=== PATIENT | male | born 1960 | race Caucasian/White ===

== ENCOUNTER → 2018-04-01 10:26 | Outpatient (REF) | payer OTHER, SELFPAY ==
[2018-04-02 18:08] LABS: PSA, Screening 0.4 ng/ml (0-3.5)
== END ==
LOC: NCHCN 10:26
PROVIDERS: PCP Internal Medicine; Visit Provider Internal Medicine
DX: R31.0 Gross hematuria (principal); Z12.5 Encounter for screening for malignant neoplasm of prostate
CPT/HCPCS: 84153

== ENCOUNTER → 2018-04-22 08:51 | Outpatient (BNVA) | payer OTHER, SELFPAY | PROVIDERS: PCP Internal Medicine; Visit Provider Nurse Practitioner Gerontology | DX: R31.9 Hematuria, unspecified (principal) | CPT/HCPCS: 99204 ==

== ENCOUNTER 2018-04-22 11:54 | Outpatient (REF) | payer OTHER, SELFPAY ==
--- NOTE | 2018-04-22 09:30 | PAPNONF_PTH ---
PATIENT: Hardy Lyn LOC: [facility] U#:[id number] AGE/SX: 57/M ROOM: RE04/22/[address]: Suad Landeros DNP : 1960 BED: DIS: 04/22/2018 SPEC #: [id number] RECD: 04/22/18 13:03 STATUS: ARLINE REIhsan #: [id number] PUNEET: 04/22/18 09:[address]: Suad Landeros DEPT: [facility] Cytology RECD BY: Che Pak ENTERED: 04/22/18 13:04 SP TYPE: ARMIN RIZO DR: Wilian Patel Tissues: 1 - BODY FLUID CYTO(SPUTUM/URINE)[facility] Procedures: BODY FLUID CYTO(URINE/SPUTUM) Comments: [id number]
== END 2018-04-22 12:14 ==
LOC: LBN 11:54
PROVIDERS: PCP Internal Medicine; Visit Provider Nurse Practitioner Gerontology
DX: R31.9 Hematuria, unspecified (principal); R82.8 Abnormal findings on cytological and histological examination of urine
CPT/HCPCS: 88104

== ENCOUNTER 2018-04-25 00:15 | Outpatient (CLI) | payer OTHER, SELFPAY ==
[2018-04-25 13:51] LABS: CREATININE 0.91 mg/dL (0.70-1.30)
--- NOTE | 2018-04-25 14:21 | DI.CT_ITS ---
SYMPTOMS/DIAGNOSIS: INTERMITTENT HEMATURIA, R31.0 CT OF THE ABDOMEN AND PELVIS: Images were performed before and after IV contrast with an addition of a 7- minute delay. The noncontrast images show two tiny nonobstructing stones in the mid and lower left kidney. A single tiny nonobstructing stone is seen in the mid right kidney. There is no evidence of ureteral calculi. The nephrograms and pyelograms are symmetric. There is a simple cyst in the anterior left kidney. No collecting system filling defects are seen. The bladder is mildly enlarged and slightly impresses on the base of the bladder. The heart size is normal. The lung bases are clear. The liver, gallbladder, spleen, pancreas and adrenals are unremarkable. There is no bowel dilatation or inflammatory change. The appendix appears normal. There are small fatty- containing bilateral inguinal hernias. IMPRESSION: Tiny bilateral nonobstructing renal calculi. Simple left renal cyst.
[2018-04-25] MEDS: Omnipaque 350 MG/ML 100 ML BTL IJ (14:27)
== END 2018-04-25 00:35 ==
PROVIDERS: PCP Internal Medicine; Visit Provider Nurse Practitioner Gerontology
DX: R31.0 Gross hematuria (principal); N20.0 Calculus of kidney; N28.1 Cyst of kidney, acquired
CPT/HCPCS: 36415; 74178; 82565; J3490

== ENCOUNTER 2018-04-27 00:38 | Outpatient (CLI) | payer OTHER, SELFPAY ==
[2018-04-27 09:25] LABS: CREATININE 1.03 mg/dL (0.70-1.30)
== END 2018-04-27 00:58 ==
PROVIDERS: PCP Internal Medicine; Visit Provider Nurse Practitioner Gerontology
DX: R31.9 Hematuria, unspecified (principal)
CPT/HCPCS: 36415; 82565

== ENCOUNTER → 2018-05-05 14:15 | Outpatient (BNVA) | payer OTHER, SELFPAY | PROVIDERS: PCP Internal Medicine; Visit Provider Nurse Practitioner Gerontology | DX: R31.0 Gross hematuria (principal); I10 Essential (primary) hypertension; E11.9 Type 2 diabetes mellitus without complications; Z79.84 Long term (current) use of oral hypoglycemic drugs | CPT/HCPCS: 99213 ==

== ENCOUNTER 2019-05-18 16:58 | Emergency (ER) | payer OTHER, SELFPAY ==
[2019-05-18 17:04] VITALS: BP 189/79; PULSE 78; RESP 18; TEMP 36.6; O2SAT 100
[2019-05-18 17:05] VITALS: RESP 16
--- NOTE | 2019-05-18 17:15 | DI.RAD_ITS ---
EXAM: XR CHEST 2V PA LATERAL INDICATION: shortness of breath. COMPARISON: No exams were available for comparison TECHNIQUE: 2D digital imaging was performed. FINDINGS: The heart is not enlarged. The lungs are clear. No pleural effusion seen. IMPRESSION: Impression no evidence of acute process
--- NOTE | 2019-05-18 17:15 | W.ED.GENAD ---
Discharge Plan Disposition Patient Disposition: HOME Condition: Stable Discharge Details Chief Complaint: SOB Clinical Impression: Shortness of breath Primary Care Provider: Wilian Patel ED Provider: Vick Raza Home Meds and New Rx's Prescriptions: Continued naproxen 500 mg tablet 250 mg PO BID PRNRF: 0 Jardiance 10 mg tablet 10 mg PO DAILY RF: 0 atorvastatin [Lipitor] 40 MG tablet 40 mg PO DAILY RF: 0 metformin 500 MG tablet 1,000 mg PO BID RF: 0 losartan 100 MG tablet 100 mg PO DAILY RF: 0 cholecalciferol (vitamin D3) [Vitamin D3] 400 UNIT capsule 1,000 units PO DAILY RF: 0 metoprolol tartrate 25 MG tablet 25 mg PO BID RF: 0 omeprazole 20 MG tablet,delayed release (DR/EC) 20 mg PO DAILY RF: 0 gabapentin 300 MG capsule 300 mg PO HS PRN PRNRF: 0 Discharge Instructions Instructions: Dyspnea (ED) Additional Instructions: Your xray and lab work did not show any significant findings to explain your symptoms follow up with your primary care provider within 1 week if you feel you are becoming more ill, have worsening shortness of breath or pain return to the emergency department for reevaluation Medical Decision Making 58 yo male with hx of DM, HTn, HLD, who comes in with chief comlpaint of shortness of breath for a week.He states he has had some aching n the anterior chest as well for several days that feels as though he lifted too puch weight. He has no fevers, cough, pressure, radiation of pain or incrased symptoms with exertion. He is speaking in full sentences in no distress. He has clear lung sounds, small pericardial effusion on bedside u/s with no evidence of tamponade clinically or on bedside u/s, no b lines in the lungs. Will obtain cbc to eval for anemia and send troponin and obtian xray. no tearing back pain so doubt dissection. Wells score is low so will send d dimer to eval for PE pt remains stable, still no tachycardia and normal oxygen saturation. Labs unremarkable other than anion gap of 16 with no other concerning findings. Will hydrate and recheck metabolic panel and also add lactate. no fevers or infectious symptoms so doubt sepsis and normal glucose so doubt dka, no abdominal pain so doubt liver disease and no hypotension so doubt shock, no overdoses and no other meds than what he is prescribed so doubt tylenol, aspirin, methanol, ethylene glycol, iron, inh ingestions. Will also repeat the troponin, heart sore is 3 pt remains stable and repeat lab work shows no concerning findings. Given stable vitals and well apperaance and reassuring lab work feel he is safe for d/c. Has walking o2 saturation of 97% without tachycardia. Advised f/u with pcp within a week and return precautions given Differential Diagnosis Differential Diagnosis: pna, nstemi, pe, chf Imaging Data Radiologic Study: Attestation: I personally reviewed and interpreted this imaging study as follows: Imaging: X-Ray Radiologist's impression: no acute findings Lab Data Lab results reviewed: Yes I reviewed the patient's lab results. ECG Data Attestation: I personally reviewed and interpreted this ECG (s) as follows: Prior ECG tracings: not available for review Interpretation: sinus rhythm, rate of 81, pr 142, no acute st t wave ischemicfindings HPI General Mode of arrival: ambulatory. Date/Time Provider Initiated Documentation: 05/18/19 17:04. Limitations to Documentation: no limitations. Information obtained by: patient. History of Present Illness 58 year old M presents to the emergency department with the chief complaint of shortness of breath, described as mild, Patient started experiencing this day(s) (7) and it has been constant. No relieving factors improve symptom(s), No exacerbating factors reported . Patient did receive the following treatments prior to arrival, none Related Data Home Medications Medication Instructions Recorded Confirmed atorvastatin [Lipitor] 40 mg PO DAILY 03/19/14 05/18/19 cholecalciferol (vitamin D3) 1,000 units PO DAILY 03/19/14 05/18/19 [Vitamin D3] losartan 100 mg PO DAILY 03/19/14 05/18/19 metformin 1,000 mg PO BID 03/19/14 05/18/19 metoprolol tartrate 25 mg PO BID 03/19/14 05/18/19 omeprazole 20 mg PO DAILY 03/19/14 05/18/19 gabapentin 300 mg PO HS PRN PRN 06/11/17 05/18/19 naproxen 500 mg tablet 250 mg PO BID PRN 04/22/18 05/18/19 empagliflozin 10 mg tablet 10 mg PO DAILY 05/05/18 05/18/19 Allergies Allergy/AdvReac Type Severity Reaction Status Date / Time amlodipine Allergy Mild Verified 05/18/19 17:08 hydrochlorothiazide Allergy Mild Verified 05/18/19 17:08 lisinopril Allergy Mild Verified 05/18/19 17:08 oxycodone HCl [From Percocet] AdvReac Nausea Verified 05/18/19 17:08 pravastatin AdvReac myalgia Verified 05/18/19 17:08 General Stated Complaint: SOB RICHARD: 2 Review of Systems Review of Systems ROS Unobtainable: All systems reviewed & are unremarkable except as noted in HPI and below Constitutional Constitutional: Denies chills, Denies fever(s) and Denies weakness Respiratory Respiratory: Denies cough Gastrointestinal Gastrointestinal: Denies abdominal pain, Denies nausea and Denies vomiting Musculoskeletal Musculoskeletal: Denies joint swelling Neurologic Neurologic: Denies weakness [facility] Social History Smoking/Tobacco Use Status: Never Alcohol Intake: never Drug use: Never Substance use type: does not use Household members: family Current gender identity: male What is your relationship status?: Panel score (0-1 are the most socially isolated patients): 1 Velma/Islam: Yarsanism Special velma needs: No Seatbelt use: always Do you feel safe at home: Yes Do you feel safe in your relationship?: Yes Exam Const General: no acute distress Orientation: alert HENMT Head: normal to inspection Ears: external ears normal General nose exam: external nose normal Mouth: moist mucous membranes Eyes General: appearance normal, both eyes and all related structures Neck Neck: normal visual inspection Resp Effort & Inspection: normal respiratory effort and able to speak in complete sentences Cardio Rate: regular rate Skin General skin exam: no rashes or lesions noted Neuro General: alert and oriented x3 Extrem General: normal to inspection Psych Mental Status: mental status grossly normal Course Vital Signs Vital signs: Vital Signs Temperature 36.6 C 05/18/19 17:04 Pulse 78 05/18/19 17:04 Respiratory Rate 18 05/18/19 17:04 Blood Pressure 189/79 H 05/18/19 17:04 Pulse Oximetry 100 05/18/19 17:04 Temperature 36.6 C 05/18/19 17:04 Temperature Source Skin 05/18/19 17:04 Pulse 78 05/18/19 17:04 Respiratory Rate 18 05/18/19 17:04 Respiratory Effort Short of Breath 05/18/19 17:06 Blood Pressure 189/79 H 05/18/19 17:04 Blood Pressure Position Sitting 05/18/19 17:04 Pulse Oximetry 100 05/18/19 17:04 Oxygen Delivery Method Room Air 05/18/19 17:04 Oxygen Flow Rate 0 05/18/19 17:04
[2019-05-18 17:27] LABS: Abs Immature Grans 0.05 k/cumm (0.0-0.09); Absolute Basophil Count 0.05 k/cumm (0.0-0.2); Absolute Eosinophil Count 0.07 k/cumm (0.0-0.7); Absolute Monocyte Count 0.73 k/cumm (0.11-0.7); Absolute Neutrophil Count 3.08 k/cumm (1.2-6.7); Basophils % 0.7; HCT 44.1 % (40.0-50.0); HGB 15.6 g/dL (13.5-17.5); Immature Grans % 0.7; Lymphocytes % 40.4; Mean Corp. HGB Concentration 35.4 g/dL (32.0-36.0); Mean Corpuscular Hemoglobin 29.4 pg (27.0-33.0); Mean Corpuscular Volume 83.2 fL (80-95); Mean Platelet Volume 10.6 fL (8.0-11.0); Monocytes % 10.9; Neutrophils % 46.3; Platelet Count 194 x1000/uL (130-400); RBC Distribution Width 14.1 % (11.8-14.1); White Blood Cell Count 6.68 k/cumm (4.4-10.8)
[2019-05-18 17:43] LABS: INR 1.1 (0.9-1.1); PTT Activated 23.3 sec (21.0-31.4); Prothrombin Time 10.7 sec (9.3-11.0)
[2019-05-18 18:00] LABS: D-Dimer 260 ng/mlFEU (<500)
--- NOTE | 2019-05-18 18:16 | DI.VRAD_ITS ---
PROCEDURE INFORMATION: Exam: XR Chest, 2 Views Exam date and time: 05/18/2019 5:57 PM Clinical history: 58 years old, male; Shortness of breath TECHNIQUE: Imaging protocol: XR of the chest Views: 2 views. COMPARISON: No relevant prior studies available. FINDINGS: Lungs: Normal pulmonary expansion. Pulmonary vasculature grossly normal. No infiltrates. Pleural space: No pleural effusion. No pneumothorax. Heart/Mediastinum: Heart size normal. No tracheal/mediastinal shift. Bones/joints: No acute osseous abnormalities are identified. IMPRESSION: No acute thoracic process. Dictated and Authenticated by: Kyle Raya MD. Ordering:ROSCOE Hickman MD
--- NOTE | 2019-05-18 18:17 | NUR.NOTE ---
pt back from xray placed back on adjunct nursing faculty family at bedside resp even unlabored at rest Nursing Note:
[2019-05-18 18:21] LABS: ALT 29 U/L (16-63); AST 16 U/L (15-37); Albumin 4.6 g/dL (3.4-5.0); Alkaline Phosphatase 113 U/L (46-116); Anion Gap 16.5 mmol/L (3-11); BUN 16 mg/dL (7-18); Bilirubin, Total 0.6 mg/dL (0.2-1.0); CO2 22.5 mmol/L (21.0-32.0); CREATININE 1.12 mg/dL (0.70-1.30); Calcium 9.6 mg/dL (8.5-10.1); Chloride 104 mmol/L (98-107); Glucose 144 mg/dL (70-100); NT-proBNP 17 pg/mL; Potassium 3.2 mmol/L (3.5-5.1); Sodium 143 mmol/L (136-145); Total Protein 8.4 g/dL (6.4-8.2); Troponin I < 0.05 ng/mL (0.00-0.06)
[2019-05-18] MEDS: Normal Saline 1,000 ML 1000 ML IV ×2 (18:36→19:47)
--- NOTE | 2019-05-18 18:53 | NUR.NOTE ---
pt ambulating around er with spo2 stayed above 97% entire time md made aware Nursing Note:
[2019-05-18 19:00] VITALS: BP 148/83; PULSE 67; RESP 14; O2SAT 99
--- NOTE | 2019-05-18 19:02 | NUR.NOTE ---
Assumed care of pt. Report from CONCETTA Hardin. Pt lying in bed in NAD. NS infusing a/o. Plan for repeat labs after 2L IVF. Pt aware of plan. Reports 3/10 aching pain to right chest. SR on monitor.
[2019-05-18 20:34] LABS: BE (Venous) -2.4 mmol/L (-3-3); HCO3 (Venous) 22 mmol/L (22-28); O2 Sat (Venous) 78 % (70-80); TCO2 (Venous) 20 mmol/L (22-29); pCO2 (Venous) 36 mm/Hg (34-47); pH (Venous) 7.41 (7.32-7.43); pO2 (Venous) 43 mm/Hg (28-44)
[2019-05-18 20:36] LABS: Lactate 1.5 mmol/L (0.6-1.4)
[2019-05-18 20:53] LABS: Troponin I < 0.05 ng/mL (0.00-0.06)
[2019-05-18 21:00] LABS: Anion Gap 13.2 mmol/L (3-11); BUN 15 mg/dL (7-18); CO2 21.8 mmol/L (21.0-32.0); CREATININE 0.93 mg/dL (0.70-1.30); Calcium 8.1 mg/dL (8.5-10.1); Chloride 109 mmol/L (98-107); Glucose 117 mg/dL (70-100); Potassium 3.5 mmol/L (3.5-5.1); Sodium 144 mmol/L (136-145)
[2019-05-18 21:15] VITALS: BP 151/75; PULSE 73; RESP 16; O2SAT 96
--- NOTE | 2019-05-18 21:16 | NUR.NOTE ---
discharge instructions reviewed with verbal understanding. aware to f/u with pcp as needed. IV removed. Ambulated to exit with steady gait.
== END 2019-05-18 21:11 | disposition home or self-care (01) ==
PROVIDERS: Emergency Provider Emergency Medicine; PCP Internal Medicine
DX: R06.02 Shortness of breath (principal); I10 Essential (primary) hypertension; E11.9 Type 2 diabetes mellitus without complications; Z79.84 Long term (current) use of oral hypoglycemic drugs
CPT/HCPCS: 36415; 80048; 80053; 82805; 93005; 96360; 96361; 99284; 71046; 83605; 83880; 84484; 85025; 85379; 85610; 85730; 93010

== ENCOUNTER 2019-06-11 12:05 | Outpatient (REF) | payer OTHER, SELFPAY ==
[2019-06-11 19:14] LABS: TSH 0.74 uIU/mL (0.36-3.74); Uric Acid 3.9 mg/dL (3.5-7.2)
== END 2019-06-11 12:25 ==
LOC: NCHCN 12:05
PROVIDERS: PCP Internal Medicine; Visit Provider Internal Medicine
DX: R14.0 Abdominal distension (gaseous) (principal); R07.89 Other chest pain; R53.83 Other fatigue; E11.9 Type 2 diabetes mellitus without complications; I10 Essential (primary) hypertension; Z87.442 Personal history of urinary calculi
CPT/HCPCS: 84439; 84443; 84550

== ENCOUNTER 2019-06-17 02:44 | Outpatient (CLI) | payer OTHER, SELFPAY ==
--- NOTE | 2019-06-17 09:38 | PFT_ITS ---
JUNE 17, 2019 REQUESTING PROVIDER: Dr. Wilian Patel SPIROMETRY: Shows no evidence of obstructive airways disease. No bronchodilator response. LUNG VOLUME: Shows no evidence of restriction. DIFFUSION CAPACITY: Normal. AIRWAYS RESISTANCE: Normal. IMPRESSION: Normal pulmonary function study. Clinical correlation is recommended.
[2019-06-17] MEDS: Inhaler, Assist Device 1 EACH MC (11:29)
[2019-06-17] MEDS: Albuterol HFA 18 GM 200 PUFF INH IH (11:30)
== END 2019-06-17 03:04 ==
PROVIDERS: PCP Internal Medicine; Visit Provider Internal Medicine
DX: R06.02 Shortness of breath (principal)
CPT/HCPCS: 94060; 94150; 94726; 94729

== ENCOUNTER 2019-06-22 01:14 | Outpatient (CLI) | payer OTHER, SELFPAY ==
[2019-06-22] MEDS: Omnipaque 350 MG/ML 50 ML BTL PO (08:31)
[2019-06-22] MEDS: Breeza Beverage 473 ML BTL PO (08:33)
--- NOTE | 2019-06-22 09:22 | DI.CT_ITS ---
EXAM: CT ABDOMEN W CLINICAL HISTORY: ABD BLOATING,R14.0,FATTY LIVER DISEASE,K76.0 TECHNIQUE: Imaging Protocol: Axial computed tomography images with coronal and sagittal reformatted images were created and reviewed CONTRAST MATERIAL: Intravenous: Omnipaque 350 Contrast volume:100 cc's, Contrast route:IV Oral: Yes FINDINGS: ABDOMEN: Lung Bases: There is a calcified granuloma in the right lower lobe. The lung bases are otherwise elaine ar. Liver: The liver does appear to be of decreased density. This raises the question of hepatic steatos is. No measurable mass. The portal, superior mesenteric and splenic veins are patent. Gallbladder and biliary tract: No radiodense calculus or dilation. Pancreas: Normal density, no abnormal calcifications or inflammatory process. Spleen: Normal. Kidneys: Normal size, contour and axis. There is a 2 mm nonobstructing stone in the midpole of the ri ght kidney. There is a 2.4 cm simple cyst in the midpole of the left kidney. No masses seen. Adrenal glands: No masses seen. Abdominal Aorta: Abdominal portion non-dilated. Atherosclerosis. Lymph nodes: Within normal limits. Bowel: Unremarkable. No ascites or pneumoperitoneum. Bones: Mild degenerative disease. IMPRESSION: 1. Findings suggestive of hepatic steatosis. 2. Right nephrolithiasis. DATA REPOSITORY: All CT scans at this facility are submitted to the National Radiology Data Registry (NRDR) Dose Index Registry (DIR) with the [employer] (ACR). RADIATION OPTIMIZATION: All CT scans at this facility use at least one of these dose optimization te chniques: automated exposure control; mA and/or kV adjustment per patient size (includes targeted exa ms where dose is matched to clinical indication); or iterative reconstruction.
[2019-06-22] MEDS: Omnipaque 350 MG/ML 100 ML BTL IV (09:24)
== END 2019-06-22 01:34 ==
PROVIDERS: PCP Internal Medicine; Visit Provider Internal Medicine
DX: R14.0 Abdominal distension (gaseous) (principal); K76.0 Fatty (change of) liver, not elsewhere classified; N20.0 Calculus of kidney; N28.1 Cyst of kidney, acquired; J98.4 Other disorders of lung
CPT/HCPCS: 74160; J3490; Q9967

== ENCOUNTER 2019-07-16 00:59 | Outpatient (CLI) | payer OTHER, SELFPAY ==
--- NOTE | 2019-07-16 08:17 | ETT_ITS ---
APPROVED REPORT Exam: Exercise Treadmill Patient Location: Out-Patient Room/Bed: Stress Nurse: Josephine Carrasquillo RN BMI: 31.74 Baseline Rhythm: Sinus rhythm with flat or neg T-waves in anterior leads Indications: Atypical chest pain. SOB on exertion. Medical History Medical History: Diabetic ??? Noninsulin, HTN, Hyperlipidemia, SOB Cardiac Medications: Metoprolol tartrate/ Lopressor, Metformin, Losartan, Atorvastatin/ Lipitor Allergies: Amlodipine. Hydrochlorothiazide. Lisinopril. Oxycodone. Pravastatin. Cardiac Risk Factors: HTN, Hyperlipidemia, Diabetes (non-insulin), SOB Exercise History: Physically active Lung Sounds: Clear to auscultation Heart Sounds: Regular Stress Test Details Test: Exercise stress testing was performed using a Mario protocol. Rest Stress HR Max Heart Rate (APMHR): 161 bpm Resting HR Supine: 83 bpm Target HR (85% APMHR): 136 bpm Resting HR Standin bpm Max HR Achieved: 171 bpm % of APMHR: 106 Recovery HR: 101 bpm HR response to stress: Normal HR response to stress BP Resting BP Supine: 162/90 mmHg Resting BP Standin/84 mmHg Max BP: 220/70 mmHg Recovery BP: 162/94 mmHg BP response to stress: Exaggerated hypertensive response ECG Resting ECG: Sinus rhythm with flat or inverted T-waves in anterior leads Ectopy: PVCs with few couplets. Stress ECG: Sinus Tachycardia ST Change: T-wave flattening remained unchanged Arrhythmia: During peak exercise PVCs noted with few couplets, resolved within 1 minute recovery. Recovery ECG: Sinus Rhythm Recovery ST Change: No significant change Clinical Time of Stop for Mario: 1003 Reason for Termination: Target HR Achieved Stress Symptoms: Mild 1 out of 10 chest ache during peak exercise, subsided within 1 minute of silva very. Exercise duration: 10 min3 sec Highest Stage Achieved: Stage 4: 4.2 mph at 16% grade. Exercise capacity: 11.88 METs Functional Capacity: Above average capacity Scale: Active Stress ECG Conclusion 1. The patient exercised for 10 minutes (12 METS) 2. The patient had a hypertensive response to stress and 1 out of 10 chest aching. 3. He had baseline T wave flattening in the anterior leads which was unchanged with stress 4. There was no significant evidence of ischemia with stress on the ECG. 5. The Edgar Score (5) estimates an annual cardiovascular mortality of 1% and a five year survival of 94%. Using the Edgar Score there is a low probability of any angiographic coronary disease. Protocol Used: Mario Protocol Stress Test Summary STAGE Time (mins) Speed (mph) Grade (%) HR BP SYMPTOMS METS Supine 83 162/90 Standing 91 168/84 1 3 1.7 10 106 180/78 4.6 2 6 2.5 12 120 192/82 7 3 9 3.4 14 145 208/90 10.2 4 12 4.2 16 162 1/10 mild chest ache 12.9 5 15 5.0 18 17.2 1 min recovery 146 218/72 No further chest discomfort 3 min recovery 111 220/70 6 min recovery 100 190/80 9 min recovery 103 188/90 15 min recovery 101 162/94
== END 2019-07-16 01:19 ==
PROVIDERS: PCP Internal Medicine; Visit Provider Internal Medicine
DX: R07.89 Other chest pain (principal); R06.02 Shortness of breath; I10 Essential (primary) hypertension; E78.5 Hyperlipidemia, unspecified; E11.9 Type 2 diabetes mellitus without complications; Z79.84 Long term (current) use of oral hypoglycemic drugs
CPT/HCPCS: 93017

== ENCOUNTER 2021-05-10 02:12 | Outpatient (CLI) | payer OTHER, SELFPAY ==
--- NOTE | 2021-05-10 | DI.RAD_ITS ---
Exam(s) XR CERVICAL SPINE COMP 4-5V EXAM: XR CERVICAL SPINE COMP 4-5V CLINICAL HISTORY: NECK PAIN, M54.2. TECHNIQUE: 2D digital imaging was performed. COMPARISON: No exams were available for comparison FINDINGS: No evidence of fracture or listhesis. Mild disc space narrowing at C6-7 level noted. Other disc spa rudy exhibit normal height there is a right sys left-sided Luschka joint osteophytes at C6-7 level. S maller right-sided Luschka joint osteophyte at this level. No cervical ribs. Mild degenerative face t arthropathy changes IMPRESSION: Degenerative disc disease C6-7 level. DATA REPOSITORY: RADIATION DOSE DELIVERED:
== END 2021-05-10 02:32 ==
PROVIDERS: PCP Internal Medicine; Visit Provider Family Medicine
DX: M54.2 Cervicalgia (principal); M50.323 Other cervical disc degeneration at C6-C7 level; M25.78 Osteophyte, vertebrae
CPT/HCPCS: 72050

== ENCOUNTER 2021-09-21 14:40 | Emergency (ER) | payer OTHER, SELFPAY ==
[2021-09-21] VITALS (42 sets, daily range): BP systolic 131–185; BP diastolic 63–74; PULSE 59–93; RESP 0–29; TEMP 36.9; O2SAT 93–100
--- NOTE | 2021-09-21 14:30 | RT.EKG_ITS ---
APPROVED REPORT Exam: Resting ECG Reason for Exam: sob Patient Location: E HR:77 bpm ECG Measurements Heart Rate 77 AXIS AZ 144 P 47 QRSd 88 QRS 5 QT 393 T 34 QTc 445 Conclusion Sinus rhythm...normal P axis, V-rate 60- 99 Physician: no stemi, Q wave in lead III, unchanged from prior EKG in 05/18/19
[2021-09-21 15:09] LABS: Abs Immature Grans 0.04 10^3/uL (0.0-0.06); Absolute Basophil Count 0.03 10^3/uL (0.0-0.2); Absolute Eosinophil Count 0.05 10^3/uL (0.0-0.7); Absolute Lymphocyte Count 1.45 10^3/uL (1.2-3.4); Absolute Neutrophil Count 5.13 10^3/uL (1.2-6.7); Basophils % 0.4; Eosinophils % 0.7; HCT 43.6 % (40.0-50.0); HGB 14.6 g/dL (13.5-17.5); Immature Grans % 0.5; Lymphocytes % 19.9; MCH 28.7 pg (27.0-33.0); MCHC 33.5 % (32.0-36.0); MCV 85.8 fL (80-95); Monocytes % 8.2; Neutrophils % 70.3; Nucleated RBC 0 %; Platelet Count 182 10^3/uL (130-400); RBC 5.08 10^6/uL (4.36-5.78); RDW 13.5 % (11.8-14.1); RDW-SD 42.1 fL
[2021-09-21 15:46] LABS: D-Dimer 264 ng/mlFEU (<500)
[2021-09-21 15:49] LABS: ALT 30 U/L (16-63); AST 16 U/L (15-37); Albumin 4.4 g/dL (3.4-5.0); Alkaline Phosphatase 84 U/L (46-116); Anion Gap 12.7 mmol/L (3-11); BUN 21 mg/dL (7-18); Bilirubin, Total 0.6 mg/dL (0.2-1.0); CO2 24.3 mmol/L (21.0-32.0); Chloride 103 mmol/L (98-107); Glucose 142 mg/dL (74-106); Magnesium 1.7 mg/dL (1.8-2.4); NT-proBNP 79 pg/mL (<300); PHOSPHORUS 4.3 mg/dL (2.6-4.7); Potassium 3.6 mmol/L (3.5-5.1); Sodium 140 mmol/L (136-145); TSH (W/Ref FT4) 0.81 uIU/mL (0.36-3.74); Total Protein 7.9 g/dL (6.4-8.2); Troponin I < 50 ng/L (<or=60)
--- NOTE | 2021-09-21 16:15 | RT.EKG_ITS ---
APPROVED REPORT Exam: Resting ECG Reason for Exam: palpitations Patient Location: E HR:62 bpm ECG Measurements Heart Rate 62 AXIS UT 146 P 30 QRSd 88 QRS -8 QT 418 T 14 QTc 425 Conclusion Sinus rhythm...normal P axis, V-rate 60- 99 Inferior infarct, old...Q >35mS, II III aVF Physician: no stemi, unchanged
--- NOTE | 2021-09-21 16:34 | W.ED.GENAD ---
Discharge Plan Disposition Patient Disposition: HOME Condition: Good Discharge Details Clinical Impression: Palpitation Primary Care Provider: Wilian Patel ED Provider: Pop Paris Home Meds and New Rx's Prescriptions: Continued naproxen 500 mg tablet 250 mg PO BID PRN0RF Jardiance 10 mg tablet 10 mg PO DAILY 0RF atorvastatin [Lipitor] 40 MG tablet 40 mg PO DAILY 0RF metformin 500 MG tablet 1,000 mg PO BID 0RF losartan 100 MG tablet 100 mg PO DAILY 0RF cholecalciferol (vitamin D3) [Vitamin D3] 400 UNIT capsule 1,000 units PO DAILY 0RF metoprolol tartrate 25 MG tablet 25 mg PO BID 0RF omeprazole 20 MG tablet,delayed release (DR/EC) 20 mg PO DAILY 0RF gabapentin 300 MG capsule 300 mg PO HS PRN PRN0RF Discharge Instructions Instructions: Heart Palpitations (ED) Additional Instructions: At this time your work-up is reassuring. There is no evidence of significant electrolyte abnormality or cardiac dysrhythmia on the work-up today. We have applied the Holter monitor, and this will be able to catch any dysrhythmia if it occurs over the next 48 hours. Once you have completed the Holter monitor please follow-up closely for reassessment with your primary care provider. If you notice any worsening of your symptoms, or any new symptoms such as vomiting, diarrhea, fever, chills, shortness of breath, chest pain, numbness, weakness, or fainting , please return immediately to the emergency department for reevaluation. Please follow up with your primary care provider as soon as possible for reassessment and reevaluation. As always, it was a pleasure participating in your medical care today. Referrals: Wilian Patel MD [Primary Care Provider] - Medical Decision Making 61-year-old male with a past medical history of hypertension, high cholesterol, diabetes, presents today for evaluation of palpitations. Patient states that last night he felt a skipping sensation in his chest, lasted about 15 minutes. It went away on its own without any significant intervention. He feels that it is slightly worsened when he lies down at night. He has had this intermittently in the past but never this severe. Then today when he was walking to his various buildings at work he noticed that he was more short of breath than normal. Currently he denies any chest pain, chest tightness, arm neck or shoulder pain. He denies any numbness, tingling, or weakness. He denies any previous cardiac disease. He denies any family history of sudden cardiac or life-threatening dysrhythmias. No other complaints at this time. Physical exam is unremarkable, vital signs stable aside from mild hypertension. EKG shows no evidence of dysrhythmia, intervals normal. No signs of STEMI. Differential includes electrolyte abnormality causing PVC or dysrhythmia, the transient shortness of breath does bring about concern for potential PE. We will get a D-dimer. Will evaluate for electrolyte abnormality, cardiac abnormality, evaluate for heart strain with the proBNP, monitor closely and reassess 6:04 PM Laboratory work-up has returned unremarkable, CBC normal, electrolytes normal. Troponin normal, proBNP shows no elevation concerning for strain. Thyroid function normal. Chest x-ray shows no significant abnormality. We have applied a Holter monitor for continued cardiac observation on an outpatient basis. There have been no significant abnormalities noted on the EKG here or during the patient's time here. We are awaiting the repeat EKG. And repeat troponin. 6:20 PM Repeat troponin repeat EKG have returned normal. Patient stable for discharge. Holter monitor applied. Discussed red flags for which to return. Patient stable at this time, no indication for admission currently. I have extensively reviewed the treatment plan and discharge instructions with the patient. I have addressed all patient concerns at this time. The patient was made aware of what symptoms to monitor for that would warrant a return to the emergency department. Discussed the plan with the patient, they demonstrate verbal understanding and agreement with our assessment and plan at this time. The documentation in this chart was dictated using [employer] dictation software. Please excuse any dictation errors. FINDINGS: Heart size is upper normal. The mediastinum is not widened. Lungs are clear. No infiltrates nor obvious pleural effusions. IMPRESSION: No acute pulmonary findings on this single AP portable view of the chest. HPI General Date/Time Provider Initiated Documentation: 09/21/21 14:42. HPI Narrative: 61-year-old male with a past medical history of hypertension, high cholesterol, diabetes, presents today for evaluation of palpitations. Patient states that last night he felt a skipping sensation in his chest, lasted about 15 minutes. It went away on its own without any significant intervention. He feels that it is slightly worsened when he lies down at night. He has had this intermittently in the past but never this severe. Then today when he was walking to his various buildings at work he noticed that he was more short of breath than normal. Currently he denies any chest pain, chest tightness, arm neck or shoulder pain. He denies any numbness, tingling, or weakness. He denies any previous cardiac disease. He denies any family history of sudden cardiac or life-threatening dysrhythmias. No other complaints at this time. Related Data Home Medications Medication Instructions Recorded Confirmed atorvastatin 40 mg tablet (Lipitor) 40 mg PO DAILY 03/19/14 09/21/21 cholecalciferol (vitamin D3) 10 1,000 units PO DAILY 03/19/14 09/21/21 mcg (400 unit) capsule (Vitamin D3) losartan 100 mg tablet 100 mg PO DAILY 03/19/14 09/21/21 metformin 500 mg tablet 1,000 mg PO BID 03/19/14 09/21/21 metoprolol tartrate 25 mg tablet 25 mg PO BID 03/19/14 09/21/21 omeprazole 20 mg tablet,delayed 20 mg PO DAILY 03/19/14 09/21/21 release gabapentin 300 mg capsule 300 mg PO HS PRN PRN 06/11/17 09/21/21 naproxen 500 mg tablet 250 mg PO BID PRN 04/22/18 09/21/21 empagliflozin 10 mg tablet 10 mg PO DAILY 05/05/18 09/21/21 (Jardiance) Allergies Allergy/AdvReac Type Severity Reaction Status Date / Time amlodipine Allergy Mild Verified 09/21/21 14:50 hydrochlorothiazide Allergy Mild Verified 09/21/21 14:50 lisinopril Allergy Mild Verified 09/21/21 14:50 oxycodone HCl [From Percocet] AdvReac Nausea Verified 09/21/21 14:50 pravastatin AdvReac myalgia Verified 09/21/21 14:50 General Stated Complaint: Palpitatns RICHARD: 2 Review of Systems Narrative: 10 point review of systems was performed, pertinent positives and negatives are noted in the history of present illness. All others were otherwise negative. PFSH All Active Problems (Updated 09/21/21 @ 18:11 by Pop Paris DO) Palpitation (Acute) Surgical History Colonoscopy - MAC (06/12/17) H/O vasectomy H/O: hemorrhoidectomy Release for de Quervain's tenosynovitis of hand (03/25/14) Right Trigger Finger release (03/25/14) Right Thumb Family History Father Brain cancer Mother Diabetes Acute Crohn's disease Social History Smoking/Tobacco Use Status: Never Smoking risk assessment performed?: Yes Alcohol Intake: never Drug use: Never Substance use type: does not use Household members: family Current gender identity: male What is your relationship status?: Panel score (0-1 are the most socially isolated patients): 1 Velma/Taoism: Congregation Special velma needs: No Seatbelt use: always Do you feel safe at home: Yes Do you feel safe in your relationship?: Yes Exam Narrative Exam Narrative: 1.Const: Well-nourished, Well-developed, appearing stated age 2.Eyes: PERRL, no conjunctival injection, and symmetrical lids. 3.ENT: Atraumatic external nose and ears. Moist MM. Neck: Symmetric, trachea midline, No thyromegaly. 4.CVS: +S1/S2, No murmurs or gallops. Peripheral pulses 2+ and equal in all extremities. Brisk capillary refill in all extremities. 5.RESP: Unlabored respiratory effort. Clear to auscultation bilaterally. No wheezes rales or rhonchi 6.GI: Soft, Nontender/Nondistended, No hepatosplenomegaly. No guarding or rebound. 7.MSK: Normocephalic/Atraumatic, Extremities w/o deformity or ttp No cyanosis or clubbing, Normal movement of all extremities 8.Skin: Warm, Dry. No rashes or lesions. 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 Sensation grossly intact, no focal neurologic deficits. 10.Psych: (AAO) x3. Appropriate mood and affect Course Vital Signs Vital signs: Vital Signs Temperature 36.9 C 09/21/21 14:46 Pulse 78 09/21/21 14:46 Respiratory Rate 19 09/21/22 14:46 Blood Pressure 185/73 H 09/21/21 14:46 Pulse Oximetry 100 09/21/21 14:46 Temperature 36.9 C 09/21/21 14:46 Temperature Source Temporal Artery Scan 09/21/21 14:46 Pulse 78 09/21/21 14:46 Respiratory Rate 09/21/21 14:46 Respiratory Effort Non-Labored 09/21/21 14:49 Blood Pressure 185/73 H 09/21/21 14:46 Blood Pressure Position Supine 09/21/21 14:46 Pulse Oximetry 100 09/21/21 14:46 Oxygen Delivery Method Room Air 09/21/21 14:46 Oxygen Flow Rate 0 09/21/21 14:46 Pain Level 0 09/21/21 14:46 Lab/Test Results Lab/Test Results: Laboratory Tests Range/Units 09/21/21 09/21/21 09/21/21 14:58 14:58 14:58 WBC (4.4-10.8) 10^3/uL 7.30 RBC (4.36-5.78) 10^6/uL 5.08 Hgb (13.5-17.5) g/dL 14.6 Hct (40.0-50.0) % 43.6 MCV (80-95) fL 85.8 MCH (27.0-33.0) pg 28.7 MCHC (32.0-36.0) % 33.5 RDW (11.8-14.1) % 13.5 Plt Count (130-400) 10^3/uL 182 MPV (8.0-11.0) fL 10.0 Immature Gran % 0.5 Neutrophils % 70.3 Lymphocytes % 19.9 Monocytes % 8.2 Eosinophils % 0.7 Basophils % 0.4 Nucleated RBC % % 0 Absolute Neutrophils (1.2-6.7) 10^3/uL 5.13 Absolute Lymphocytes (1.2-3.4) 10^3/uL 1.45 Absolute Monocytes (0.1-0.8) 10^3/uL 0.60 Absolute Eosinophils (0.0-0.7) 10^3/uL 0.05 Absolute Basophils (0.0-0.2) 10^3/uL 0.03 D-Dimer (<500) ng/mlFEU 264 Sodium (136-145) mmol/L 140 Potassium (3.5-5.1) mmol/L 3.6 Chloride (98-107) mmol/L 103 Carbon Dioxide (21.0-32.0) mmol/L 24.3 Anion Gap (3-11) mmol/L 12.7 H BUN (7-18) mg/dL 21 H Creatinine (0.70-1.30) mg/dL 1.0 Estimated GFR/1.73 m2 (mL/min/1.73m2) >= 60.00 Glucose (74-106) mg/dL 142 H Calcium (8.5-10.1) mg/dL 9.0 Phosphorus (2.6-4.7) mg/dL 4.3 Magnesium (1.8-2.4) mg/dL 1.7 L Total Bilirubin (0.2-1.0) mg/dL 0.6 AST (15-37) U/L 16 ALT (16-63) U/L 30 Alkaline Phosphatase (46-116) U/L 84 Troponin I (<or=60) ng/L < 50 NT-Pro-B Natriuret Pep (<300) pg/mL 79 Total Protein (6.4-8.2) g/dL 7.9 Albumin (3.4-5.0) g/dL 4.4 TSH (0.36-3.74) uIU/mL 0.81
--- NOTE | 2021-09-21 17:13 | DI.RAD_ITS ---
Exam(s) XR PORTABLE CHEST AP EXAM: XR PORTABLE CHEST AP CLINICAL HISTORY: shortness of breath. TECHNIQUE: 2D digital imaging was performed. COMPARISON: CR XR CHEST 2V PA LATERAL from 05/18/2019 FINDINGS: Heart size is upper normal. The mediastinum is not widened. Lungs are clear. No infiltrates nor obvious pleural effusions. IMPRESSION: No acute pulmonary findings on this single AP portable view of the chest. DATA REPOSITORY: RADIATION DOSE DELIVERED: All CT scans at this facility use at least one of these dose optimization techniques: automated exposure control; mA and/or kV adjustment per patient size (includes targeted e xams where dose is matched to clinical indication); or iterative reconstruction.
--- NOTE | 2021-09-21 17:39 | DI.VRAD_ITS ---
PROCEDURE INFORMATION: Exam: XR Chest Exam date and time: 09/21/2021 4:40 PM Age: 61 years old Clinical indication: Shortness of breath TECHNIQUE: Imaging protocol: XR of the chest. Views: 1 view. COMPARISON: CR XR CHEST 2V PA LATERAL 05/18/2019 5:57 PM FINDINGS: Lungs: The lungs are clear. There is no pulmonary vascular congestion. Pleural spaces: There are no pleural effusions present. There is no evidence of pneumothorax. Heart/Mediastinum: The cardiomediastinal silhouette is within normal limits. Bones/joints: Unremarkable. IMPRESSION: No active cardiopulmonary disease identified. Dictated and Authenticated by: Kyle Hercules MD. Ordering:BACILIO Lord MD
[2021-09-21 18:12] LABS: Troponin I < 50 ng/L (<or=60)
== END 2021-09-21 18:36 | disposition home or self-care (01) ==
PROVIDERS: Emergency Provider Student in an Organized Health Care Education/Training Program; PCP Internal Medicine
DX: R00.2 Palpitations (principal); R06.02 Shortness of breath
CPT/HCPCS: 36415; 80053; 93005; 99284; 71045; 83735; 83880; 84100; 84443; 84484; 85025; 85379; 93010; 93225

== ENCOUNTER 2021-09-21 16:06 | Outpatient (RCR) | payer OTHER, SELFPAY ==
--- NOTE | 2021-09-21 16:00 | HOLTER_ITS ---
APPROVED REPORT Conclusion This is a 48-hour Holter monitor ordered for palpitations Predominant rhythm was sinus. Average heart rate was 62, minimum 52, maximum 95 There were very rare isolated atrial and ventricular ectopic beats There was no atrial fibrillation, no high-grade AV block, no pauses greater than 3 seconds Patient symptoms corresponded to sinus rhythm, rates ranging from 65-80
== END 2021-10-09 23:59 | disposition home or self-care (01) ==
LOC: RT 16:06
PROVIDERS: PCP Internal Medicine; Visit Provider Student in an Organized Health Care Education/Training Program
DX: R00.2 Palpitations (principal)
CPT/HCPCS: 93227; 93225; 93226

== ENCOUNTER 2021-10-13 22:45 | Inpatient (IN) | payer OTHER, SELFPAY ==
--- NOTE | 2021-10-13 22:45 | RT.EKG_ITS ---
APPROVED REPORT Exam: Resting ECG Reason for Exam: chest pain Patient Location: E HR:75 bpm ECG Measurements Heart Rate 75 AXIS AZ 139 P 48 QRSd 91 QRS 0 QT 399 T 46 QTc 445 Conclusion Sinus rhythm...normal P axis, V-rate 60- 99 Physician: Rate 75, intervals normal, no significant ST elevation. Minimal depression in V4 and V5, with T wave flattening in the anterior lateral and inferior leads. Questionable Q wave in lead III. No inverted T waves. No STEMI. Comparison from EKG on 09/21/2021 demonstrates increased flattening of T waves and small depression that was not there before. No other acute changes.
[2021-10-13 22:49] VITALS: BP 159/96; PULSE 81; RESP 19; TEMP 36.7; O2SAT 100
[2021-10-13] MEDS: Aspirin 81 MG CHEW 324 MG CH (23:19)
[2021-10-13] MEDS: nitroGLYcerin 0.4 MG TAB SL (23:19)
[2021-10-13 23:20] LABS: Absolute Basophil Count 0.05 10^3/uL (0.0-0.2); Absolute Eosinophil Count 0.08 10^3/uL (0.0-0.7); Absolute Lymphocyte Count 1.94 10^3/uL (1.2-3.4); Absolute Monocyte Count 0.61 10^3/uL (0.1-0.8); Absolute Neutrophil Count 5.48 10^3/uL (1.2-6.7); Basophils % 0.6; HGB 14.9 g/dL (13.5-17.5); Immature Grans % 1.2; Lymphocytes % 23.5; MCH 28.7 pg (27.0-33.0); MCHC 34.7 % (32.0-36.0); MCV 82.7 fL (80-95); MPV 9.8 fL (8.0-11.0); Monocytes % 7.4; Neutrophils % 66.3; Nucleated RBC 0 %; Platelet Count 188 10^3/uL (130-400); RDW 13.6 % (11.8-14.1); WBC 8.26 10^3/uL (4.4-10.8)
[2021-10-13 23:34] LABS: PTT Activated 22.8 sec (21.0-27.5); Prothrombin Time 10.4 sec (9.3-11.0)
[2021-10-13 23:48] LABS: ALT 26 U/L (16-63); AST 13 U/L (15-37); Albumin 4.2 g/dL (3.4-5.0); Alkaline Phosphatase 97 U/L (46-116); BUN 16 mg/dL (7-18); Bilirubin, Total 0.7 mg/dL (0.2-1.0); CREATININE 1.2 mg/dL (0.70-1.30); Calcium 9.8 mg/dL (8.5-10.1); Chloride 105 mmol/L (98-107); Glucose 164 mg/dL (74-106); Magnesium 1.6 mg/dL (1.8-2.4); NT-proBNP 43 pg/mL (<300); Potassium 3.1 mmol/L (3.5-5.1); Sodium 142 mmol/L (136-145); Total Protein 7.7 g/dL (6.4-8.2); Troponin I < 50 ng/L (<or=60)
--- NOTE | 2021-10-13 23:48 | W.ED.GENAD ---
Discharge Plan Disposition Patient Disposition: [facility] INPATIENT Condition: Stable Discharge Details Clinical Impression: Chest pain, Thyroid lesion, Breath shortness Primary Care Provider: Wilian Patel ED Provider: Pop Paris Home Meds and New Rx's Prescriptions: No Action naproxen 500 mg tablet 250 mg PO BID PRN0RF Jardiance 10 mg tablet 10 mg PO DAILY 0RF atorvastatin [Lipitor] 40 MG tablet 40 mg PO DAILY 0RF metformin 500 MG tablet 1,000 mg PO BID 0RF losartan 100 MG tablet 100 mg PO DAILY 0RF cholecalciferol (vitamin D3) [Vitamin D3] 400 UNIT capsule 1,000 units PO DAILY 0RF metoprolol tartrate 25 MG tablet 25 mg PO BID 0RF omeprazole 20 MG tablet,delayed release (DR/EC) 20 mg PO DAILY 0RF gabapentin 300 MG capsule 300 mg PO HS PRN PRN0RF Medical Decision Making 61-year-old male with a past medical history of hypertension, high cholesterol, diabetes, who presents today for chest pain and shortness of breath. Patient was seen and assessed 3 weeks ago for mild chest palpitations and at that time he had an unremarkable and stable work-up. He was discharged with a Holter monitor which was relatively unremarkable aside for a few ectopic atrial and ventricular beats. However since that time the patient has noticed an increase in amount of central and epigastric chest tightness, and shortness of breath with activity or exertion. He denies any additional recent long trips, surgeries or procedures. Notably over the last 3 days the patient has become profoundly fatigued and has notable severe chest tightness. It is present even at rest, he has to go up the stairs extremely slowly last he gets very short of breath. He noticed profound shortness of breath and tightness after about 50 to 100 feet of walking. He is normally very active and has never had symptoms like this before. He denies any arm neck or shoulder pain but he does admit to some previous radiation up to the top of his chest and towards his neck few days ago. He denies any vomiting or diarrhea. He denies any abdominal pain. He denies any pleuritic chest pain, cough, fever, or hemoptysis. Patient does note a positive family history of cardiac disease, his grandmother in her early 60s from a heart attack, and parents did have cardiac angina. Patient does not smoke. He denies any other complaints at this time. Physical exam is unremarkable. Minimal reproducible left sternal chest wall tenderness but this is different than the normal tightness and shortness of breath he has been having. No calf tenderness. Radial pulses equal bilaterally. Bedside limited ultrasound demonstrates pericardial fat pad, but otherwise good cardiac contractility throughout. With the patient's worsening shortness of breath chest pain notable difficulty with exertion I am certainly concerned for cardiac etiology. EKG shows no signs of STEMI, but he certainly does have some flattening of his T waves as well as some depression in the anterior lateral leads. Initial troponin and proBNP are both normal. Potassium slightly low, magnesium minimally low, anion gap minimally elevated. Pending D-dimer still. Differential includes coronary artery disease, less likely PE. Dissection is also unlikely but on the differential. Nitroglycerin was given to the patient and his chest tightness and shortness of breath resolved. He did get slightly diaphoretic for about 2 minutes when he had the nitro but all of his other symptoms resolved, and then the diaphoresis is resolved on its own as well. Likely secondary to mild vagal component. We will continue to monitor closely and reassess. He does have a stress test scheduled on Saturday. 12:57 AM Laboratory work-up is returned unremarkable, potassium and magnesium are slightly low and these will be corrected. After the nitroglycerin the patient had complete resolution of his chest tightness. BNP was normal suggesting no cardiac strain. CTA was ordered and shows no evidence of pulmonary embolism or dissection, but there is evidence per virtual radiology of coronary artery disease and a 17 mm lesion in the thyroid lobe. Patient's heart score is 4-5, which puts him in the moderate risk group. Additionally with his worsening exertional shortness of breath, especially over the last few days, in conjunction with the resolution of his pain with nitroglycerin, and taking into account the T wave flattening and minimal trace depression in the anterior lateral leads and inferior leads, I do feel that a cardiac etiology is highest on the differential still. With the CTA showing evidence of coronary artery disease in conjunction with the symptoms and findings, we discussed the risks and benefits of admission versus discharge, and at this time through shared decision-making process we will keep the patient here over the weekend, continue to monitor, and get a stress test Saturday morning. Discussed the case with the hospitalist Dr. Vazquez, he agrees with the assessment and plan. I have extensively reviewed the treatment plan with the patient. I have addressed all patient concerns at this time. I have also discussed the plan with the admitting physician and they agree with the current assessment and plan and have agreed to assume responsibility for the patient. All parties demonstrate verbal understanding and agreement with our assessment and plan at this time. The documentation in this chart was dictated using [employer] dictation software. Please excuse any dictation errors. EKG 22.54 Rate 75, intervals normal, no significant ST elevation. Minimal depression in V4 and V5, with T wave flattening in the anterior lateral and inferior leads. Questionable Q wave in lead III. No inverted T waves. No STEMI. Comparison from EKG on 09/21/2021 demonstrates increased flattening of T waves and small depression that was not there before. No other acute changes. EKG 1:59 AM Sinus rhythm, rate 70, no significant ST elevations. Previous depressions that were noted on prior EKG earlier tonight have resolved. T waves have improved compared to prior EKG. No evidence of STEMI. Intervals normal. FINDINGS: Pulmonary arteries: No pulmonary artery filling defects. Aorta: Unremarkable. No aortic aneurysm. No aortic dissection. Thyroid: 17 mm area or lesion of heterogeneously diminished enhancement in left thyroid lobe. Lungs: Calcified granuloma right lung. Pleural spaces: Unremarkable. No pneumothorax. No pleural effusion. Heart: Minimal cardiomegaly. Coronary artery calcifications. Heart RV/LV ratio: RV/LV ratio greater than 1. Lymph nodes: Unremarkable. No enlarged lymph nodes. Kidneys and ureters: 2.3 cm simple cyst left kidney. Bones/joints: The spine demonstrates mild degenerative changes at multiple levels. Soft tissues: Unremarkable. IMPRESSION: 1. No pulmonary artery embolism demonstrated. 2. No aortic aneurysm or dissection. 3. Coronary artery disease. 4. 17 mm lesion in left thyroid lobe. Correlate with thyroid ultrasound. Thank you for allowing us to participate in the care of your patient. Dictated and Authenticated by: Ramon Bacon DO 10/14/2021 12:41 AM Eastern Time ([place] & [place]) HPI General Date/Time Provider Initiated Documentation: 10/13/21 23:05. HPI Narrative: 61-year-old male with a past medical history of hypertension, high cholesterol, diabetes, who presents today for chest pain and shortness of breath. Patient was seen and assessed 3 weeks ago for mild chest palpitations and at that time he had an unremarkable and stable work-up. He was discharged with a Holter monitor which was relatively unremarkable aside for a few ectopic atrial and ventricular beats. However since that time the patient has noticed an increase in amount of central and epigastric chest tightness, and shortness of breath with activity or exertion. He denies any additional recent long trips, surgeries or procedures. Notably over the last 3 days the patient has become profoundly fatigued and has notable severe chest tightness. It is present even at rest, he has to go up the stairs extremely slowly last he gets very short of breath. He noticed profound shortness of breath and tightness after about 50 to 100 feet of walking. He is normally very active and has never had symptoms like this before. He denies any arm neck or shoulder pain but he does admit to some previous radiation up to the top of his chest and towards his neck few days ago. He denies any vomiting or diarrhea. He denies any abdominal pain. He denies any pleuritic chest pain, cough, fever, or hemoptysis. Patient does note a positive family history of cardiac disease, his grandmother in her early 60s from a heart attack, and parents did have cardiac angina. Patient does not smoke. He denies any other complaints at this time. Related Data Home Medications Medication Instructions Recorded Confirmed atorvastatin 40 mg tablet (Lipitor) 40 mg PO DAILY 03/19/14 09/21/21 cholecalciferol (vitamin D3) 10 1,000 units PO DAILY 03/19/14 09/21/21 mcg (400 unit) capsule (Vitamin D3) losartan 100 mg tablet 100 mg PO DAILY 03/19/14 09/21/21 metformin 500 mg tablet 1,000 mg PO BID 03/19/14 09/21/21 metoprolol tartrate 25 mg tablet 25 mg PO BID 03/19/14 09/21/21 omeprazole 20 mg tablet,delayed 20 mg PO DAILY 03/19/14 09/21/21 release gabapentin 300 mg capsule 300 mg PO HS PRN PRN 06/11/17 09/21/21 naproxen 500 mg tablet 250 mg PO BID PRN 04/22/18 09/21/21 empagliflozin 10 mg tablet 10 mg PO DAILY 05/05/18 09/21/21 (Jardiance) Allergies Allergy/AdvReac Type Severity Reaction Status Date / Time amlodipine Allergy Mild Verified 09/21/21 14:50 hydrochlorothiazide Allergy Mild Verified 09/21/21 14:50 lisinopril Allergy Mild Verified 09/21/21 14:50 oxycodone HCl [From Percocet] AdvReac Nausea Verified 09/21/21 14:50 pravastatin AdvReac myalgia Verified 09/21/21 14:50 General Stated Complaint: Chest Pain RICHARD: 3 Review of Systems All systems reviewed & are unremarkable except as noted in HPI and below PFSH All Active Problems (Updated 10/14/21 @ 01:59 by Jason Vazquez) Unstable angina (Acute) Palpitation (Acute) Chest pain (Acute) Thyroid lesion (Acute) Breath shortness (Acute) Surgical History Colonoscopy - MAC (06/12/17) H/O vasectomy H/O: hemorrhoidectomy Release for de Quervain's tenosynovitis of hand (03/25/14) Right Trigger Finger release (03/25/14) Right Thumb Family History Father Brain cancer Mother Diabetes Acute Crohn's disease Social History Smoking/Tobacco Use Status: Never Smoking risk assessment performed?: Yes Alcohol Intake: never Drug use: Never Substance use type: does not use Household members: family Current gender identity: male What is your relationship status?: Panel score (0-1 are the most socially isolated patients): 1 Velma/Judaism: Zoroastrianism Special velma needs: No Seatbelt use: always Do you feel safe at home: Yes Do you feel safe in your relationship?: Yes Exam Narrative Exam Narrative: 1.Const: Well-nourished, Well-developed, appearing stated age 2.Eyes: PERRL, no conjunctival injection, and symmetrical lids. 3.ENT: Atraumatic external nose and ears. Moist MM. Neck: Symmetric, trachea midline, No thyromegaly. 4.CVS: +S1/S2, No murmurs or gallops. Peripheral pulses 2+ and equal in all extremities. Brisk capillary refill in all extremities. 5.RESP: Unlabored respiratory effort. Clear to auscultation bilaterally. No wheezes rales or rhonchi 6.GI: Soft, Nontender/Nondistended, No hepatosplenomegaly. No guarding or rebound. 7.MSK: Normocephalic/Atraumatic, Extremities w/o deformity or ttp No cyanosis or clubbing, Normal movement of all extremities 8.Skin: Warm, Dry. No rashes or lesions. 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 Sensation grossly intact, no focal neurologic deficits. 10.Psych: (AAO) x3. Appropriate mood and affect Course Vital Signs Vital signs: Vital Signs Temperature 36.7 C 10/13/21 22:49 Pulse 81 10/13/21 22:49 Respiratory Rate 19 10/13/21 22:49 Blood Pressure 159/96 H 10/13/21 22:49 Pulse Oximetry 100 10/13/21 22:49 Temperature 36.7 C 10/13/21 22:49 Temperature Source Tympanic 10/13/21 22:49 Pulse 81 10/13/21 22:49 Respiratory Rate 19 10/13/21 22:49 Respiratory Effort 10/13/21 22:54 Respiratory Depth Normal 10/13/21 22:54 Respiratory Pattern Normal 10/13/21 22:54 Blood Pressure 159/96 H 10/13/21 22:49 Blood Pressure Position Supine 10/13/21 22:49 Pulse Oximetry 100 10/13/21 22:49 Oxygen Delivery Method Room Air 10/13/21 22:49 Oxygen Flow Rate 0 10/13/21 22:49 Pain Level 3 10/13/21 22:49 Lab/Test Results Lab/Test Results: Laboratory Tests Range/Units 10/13/21 10/13/21 23:12 23:12 WBC (4.4-10.8) 10^3/uL 8.26 RBC (4.36-5.78) 10^6/uL 5.20 Hgb (13.5-17.5) g/dL 14.9 Hct (40.0-50.0) % 43.0 MCV (80-95) fL 82.7 MCH (27.0-33.0) pg 28.7 MCHC (32.0-36.0) % 34.7 RDW (11.8-14.1) % 13.6 Plt Count (130-400) 10^3/uL 188 MPV (8.0-11.0) fL 9.8 Immature Gran % 1.2 Neutrophils % 66.3 Lymphocytes % 23.5 Monocytes % 7.4 Eosinophils % 1.0 Basophils % 0.6 Nucleated RBC % % 0 Absolute Neutrophils (1.2-6.7) 10^3/uL 5.48 Absolute Lymphocytes (1.2-3.4) 10^3/uL 1.94 Absolute Monocytes (0.1-0.8) 10^3/uL 0.61 Absolute Eosinophils (0.0-0.7) 10^3/uL 0.08 Absolute Basophils (0.0-0.2) 10^3/uL 0.05 PT (9.3-11.0) sec 10.4 INR (0.9-1.1) 1.0 APTT (21.0-27.5) sec 22.8
[2021-10-13 23:58] VITALS: O2SAT 97
[2021-10-14] VITALS (33 sets, daily range): BP systolic 120–168; BP diastolic 60–94; PULSE 59–81; RESP 12–21; TEMP 36.4–36.8; O2SAT 95–100
--- NOTE | 2021-10-14 | DI.CT_ITS ---
Exam(s) CT CHEST PE CTA EXAM: CT CHEST PE CTA CLINICAL HISTORY: chest pain, sob, chest tightness. TECHNIQUE: Imaging Protocol: Axial CT angiography was performed with multi-slice acquisition and mu lti-planar and/or 3D reconstructions. CONTRAST MATERIAL: Intravenous: Omnipaque 350 Contrast volume:structured data in ml COMPARISON: CT CT ABDOMEN W from 06/22/2019 FINDINGS: CT angiography of the chest was performed with intravenous infusion of 100 cc of Omnipaque 350. Note is made of coronary artery calcification. The lungs are clear except for small bilateral calcified pulmonary granulomas.. No pleural effusion. Tracheobronchial tree appears intact. No evidence of pulmonary embolic disease. Thoracic aorta is of normal diameter, no thoracic aortic an eurysm or dissection, major branch vessels appear intact. No mediastinal or hilar adenopathy. Images obtained through the upper abdomen show unremarkable appearance of the visualized portions of the liver, spleen, pancreas, adrenals, and kidneys. IMPRESSION: Negative CT angiogram of the chest. No evidence of pulmonary embolic disease. RADIATION DOSE DELIVERED: 502.89mGy.cm Total DLP 502.89mGy.cm Total DLP !Error CTDIvol DATA REPOSITORY: All CT scans at this facility are submitted to the National Radiology Data Registry (NRDR) Dose Index Registry (DIR) with the [employer] (ACR). RADIATION OPTIMIZATION: All CT scans at this facility use at least one of these dose optimization te chniques: automated exposure control; mA and/or kV adjustment per patient size (includes targeted exa ms where dose is matched to clinical indication); or iterative reconstruction.
[2021-10-14 00:04] LABS: D-Dimer 300 ng/mlFEU (<500)
[2021-10-14] MEDS: Omnipaque 350 MG/ML 100 ML BTL 78 ML IJ (00:21)
[2021-10-14] MEDS: Normal Saline Flush 10 ML SYR IVP (00:24)
[2021-10-14] MEDS: MAGNESIUM SULFATE 2 GM/50 ML BAG IVPB (00:30)
[2021-10-14] MEDS: POTASSIUM CHLORIDE 20 MEQ/100 ML BAG 50 MEQ IVPB (00:30)
--- NOTE | 2021-10-14 00:41 | DI.VRAD_ITS ---
PROCEDURE INFORMATION: Exam: CTA Chest With Contrast Exam date and time: 10/14/2021 12:07 AM Age: 61 years old Clinical indication: Shortness of breath; Other: Chest pain and tightness; Additional info: Chest pain and tightness, SOB TECHNIQUE: Imaging protocol: Computed tomographic angiography of the chest with contrast. 3D rendering (Not supervised by radiologist): MIP and/or 3D reconstructed images were created by the technologist. Radiation optimization: All CT scans at this facility use at least one of these dose optimization techniques: automated exposure control; mA and/or kV adjustment per patient size (includes targeted exams where dose is matched to clinical indication); or iterative reconstruction. Contrast material: OMNI 350; Contrast volume: 78 ml; Contrast route: INTRAVENOUS (IV); COMPARISON: XR PORTABLE CHEST AP 09/21/2021 5:00 PM FINDINGS: Pulmonary arteries: No pulmonary artery filling defects. Aorta: Unremarkable. No aortic aneurysm. No aortic dissection. Thyroid: 17 mm area or lesion of heterogeneously diminished enhancement in left thyroid lobe. Lungs: Calcified granuloma right lung. Pleural spaces: Unremarkable. No pneumothorax. No pleural effusion. Heart: Minimal cardiomegaly. Coronary artery calcifications. Heart RV/LV ratio: RV/LV ratio greater than 1. Lymph nodes: Unremarkable. No enlarged lymph nodes. Kidneys and ureters: 2.3 cm simple cyst left kidney. Bones/joints: The spine demonstrates mild degenerative changes at multiple levels. Soft tissues: Unremarkable. IMPRESSION: 1. No pulmonary artery embolism demonstrated. 2. No aortic aneurysm or dissection. 3. Coronary artery disease. 4. 17 mm lesion in left thyroid lobe. Correlate with thyroid ultrasound. Dictated and Authenticated by: Ramon Bacon MD. Ordering:BACILIO Lord MD
--- NOTE | 2021-10-14 00:45 | RT.EKG_ITS ---
APPROVED REPORT Exam: Resting ECG Reason for Exam: chest pain Patient Location: E HR:70 bpm ECG Measurements Heart Rate 70 AXIS MD 145 P 43 QRSd 88 QRS -4 QT 406 T 15 QTc 440 Conclusion Sinus rhythm...normal P axis, V-rate 60- 99 Physician: Sinus rhythm, rate 70, no significant ST elevations. Previous depressions that were noted on prior EKG earlier tonight have resolved. T waves have improved compared to prior EKG. No eviden ce of STEMI. Intervals normal.
--- NOTE | 2021-10-14 01:29 | W.PM.HP.N ---
Date of service: 10/14/21 Time of Service: 01:30 Assessment and Plan Assessment and plan (1) Unstable angina: Status: Acute Assessment and plan: begin ASA, continue BB, statin; add nitrates; check serial troponin I levels; obtain formal echo on Saturday along w/stress MPI and consult cardiology on Saturday. I would not send him home even if all of his troponin I are normal as he has worrisome symptoms and multiple risk factors. Note CT scan of chest alreaday shows mild cardiomegaly along w/ coronary calcifications. If he has further CP then I would repeat his EKG and troponin and consider transfer for cardiac cath. If his CP remains quiescent over the weekend then can proceed w/ scheduled MPI. (2) HTN (hypertension): Status: None Assessment and plan: cont. lopressor, losartan (3) DM (diabetes mellitus): Status: None Assessment and plan: hold Jardiance and metformin. cover w/ SSI Novolog History of Present Illness History of Present Illness Chief Complaint: dyspnea Narrative: 61 yr old male non-smoker w/ PMH HTN, HLD, DM2 who has been experiencing exertional dyspnea and fatigue x 2 months along w/ occasional feeling of skipped heart beats. Patient has been evaluated by his PCP including holter monitor last month (09/21/21) that demonstrated NSR w/ occasional PAC's and PVC's but no afib or PSVT. Patient was set up to have a nuclear MPI stress test for next Saturday. Patient states that he has always had intermittent twinges of chest pains that are fleeting and he attributes to muscle spasms but he denies any episodes of crushing chest tightness nor any nausea or vomiting nor any diaphoresis. In addition to the above coronary risk factors, he has a family hx of CAD in both his father and his father's mother. Today he came to the ER out of concern that he seems to get more dyspnea w/ less effort and will get winded w/ climbing 2 flights of stairs and has been experiencing chest tightness like he can not take a deep enough breath. He was evaluated by Dr. Paris in the ER who ordered routine labs including CBC (normal), CMP (low K+, low Mg++, elevated glucose), normal troponin I and normal coagulation profile including normal D-dimer. EKG demonstrated NSR w/ non-specific upward sloping ST depression in V4,V5 of less than 1 mm but new compared to prior ECG from 09/21/21. Patient was given single NTG which led to some diaphoresis but resolution of his dyspnea and chest tightness. He is being admitted for symptoms of accelerating angina. Serial troponins will be done to rule out NSTEMI. He is presently asymptomatic. Dr. Paris performed bedside POCUS echo which demonstrated preserved LV and RV function w/ no pleural or pericardial effusions. His first troponin was <50 ng/L, repeat one is due at 2 am. Review of Systems All systems reviewed & are unremarkable except as noted in HPI and below Constitutional Constitutional: Reports fatigue and Reports lethargy Eyes Eyes: Reports system reviewed and no additional complaints, except as documented ENT Ears, Nose, Mouth, and Throat: Reports system reviewed and no additional complaints, except as documented Cardiovascular Cardiovascular: Reports as per HPI, Reports chest pain with activity and Reports dyspnea on exertion Respiratory Respiratory: Denies chest congestion, Denies cough and Reports dyspnea on exertion Gastrointestinal Gastrointestinal: Reports dyspepsia and Reports heartburn Genitourinary Genitourinary: Reports system reviewed and no additional complaints, except as documented Musculoskeletal Musculoskeletal: Reports back pain (chronic related to spinal stenosis and old back injury from ) Integumentary/Breasts Skin/Breast: Reports system reviewed and no additional complaints, except as documented Neurologic Neurologic: Reports system reviewed and no additional complaints, except as documented Psychiatric Psychiatric: Reports system reviewed and no additional complaints, except as documented Endocrine Endocrine: Reports fatigue Hematologic/Lymphatic Hematologic/Lymphatic: Reports system reviewed and no additional complaints, except as documented Allergic/Immunologic Allergic/Immunologic: Reports system reviewed and no additional complaints, except as documented PFSH All Active Problems (Updated 10/14/21 @ 01:59 by Jason Vazquez) Unstable angina (Acute) Palpitation (Acute) Chest pain (Acute) Thyroid lesion (Acute) Breath shortness (Acute) Surgical History Colonoscopy - MAC (06/12/17) H/O vasectomy H/O: hemorrhoidectomy Release for de Quervain's tenosynovitis of hand (03/25/14) Right Trigger Finger release (03/25/14) Right Thumb Family History Father Brain cancer Mother Diabetes Acute Crohn's disease Social History Smoking/Tobacco Use Status: Never Smoking risk assessment performed?: Yes Alcohol Intake: never Drug use: Never Substance use type: does not use Household members: family Current gender identity: male What is your relationship status?: Panel score (0-1 are the most socially isolated patients): 1 Velma/Worship: Ep[employer]opalian Special velma needs: No Seatbelt use: always Do you feel safe at home: Yes Do you feel safe in your relationship?: Yes Meds Allergies and Home Medications Allergies Allergy/AdvReac Type Severity Reaction Status Date / Time amlodipine Allergy Mild Verified 09/21/21 14:50 hydrochlorothiazide Allergy Mild Verified 09/21/21 14:50 lisinopril Allergy Mild Verified 09/21/21 14:50 oxycodone HCl [From Percocet] AdvReac Nausea Verified 09/21/21 14:50 pravastatin AdvReac myalgia Verified 09/21/21 14:50 Home Medications Medication Instructions Recorded Confirmed Type atorvastatin 40 mg tablet (Lipitor) 40 mg PO DAILY 03/19/14 10/14/21 History cholecalciferol (vitamin D3) 10 1,000 units PO DAILY 03/19/14 10/14/21 History mcg (400 unit) capsule (Vitamin D3) losartan 100 mg tablet 100 mg PO DAILY 03/19/14 10/14/21 History metformin 500 mg tablet 1,000 mg PO BID 03/19/14 10/14/21 History metoprolol tartrate 25 mg tablet 25 mg PO BID 03/19/14 10/14/21 History omeprazole 20 mg tablet,delayed 20 mg PO DAILY 03/19/14 10/14/21 History release gabapentin 300 mg capsule 300 mg PO HS PRN PRN 06/11/17 10/14/21 History naproxen 500 mg tablet 250 mg PO BID PRN 04/22/18 10/14/21 History empagliflozin 10 mg tablet 10 mg PO DAILY 05/05/18 10/14/21 History (Jardiance) Exam Narrative Exam Narrative: Middle age white male lying on ER [place] not in any distress, alert and oriented HEENT: urnremarkable; Neck: no JVD, normal carotid pulses, no bruits, no adenopathy Lungs: clear to auscultation Heart: RRR, w/out murmur or rub or gallops; no thrill or heave Abdomen: obese, soft, nontender, normal bowel sounds Extremities: w/out edema or cyanosis. normal pedal pulses Neuro: grossly wnl Results Imaging CT scan - chest: report reviewed EKG: image reviewed Labs Result diagrams: 10/13/21 23:12 10/13/21 23:12 Labs: Laboratory Results - last 24 hr 10/13/21 10/13/21 10/13/21 23:12 23:12 23:12 WBC 8.26 RBC 5.20 Hgb 14.9 Hct 43.0 MCV 82.7 MCH 28.7 MCHC 34.7 RDW 13.6 Plt Count 188 MPV 9.8 Immature Gran % 1.2 Neutrophils % 66.3 Lymphocytes % 23.5 Monocytes % 7.4 Eosinophils % 1.0 Basophils % 0.6 Nucleated RBC % 0 Absolute Neutrophils 5.48 Absolute Lymphocytes 1.94 Absolute Monocytes 0.61 Absolute Eosinophils 0.08 Absolute Basophils 0.05 PT 10.4 INR 1.0 APTT 22.8 D-Dimer 300 Sodium 142 Potassium 3.1 L Chloride 105 Carbon Dioxide 21.0 Anion Gap 16.0 H BUN 16 Creatinine 1.2 Estimated GFR/1.73 m2 >= 60.00 Glucose 164 H Calcium 9.8 Magnesium 1.6 L Total Bilirubin 0.7 AST 13 L ALT 26 Alkaline Phosphatase 97 Troponin I < 50 NT-Pro-B Natriuret Pep 43 Total Protein 7.7 Albumin 4.2 Last Vital Signs Temp 36.7 C 10/13/21 22:49 Pulse 70 10/14/21 00:39 Resp 14 10/14/21 00:39 BP 135/63 10/14/21 00:39 Pulse Ox 99 10/14/21 00:39
[2021-10-14 02:26] LABS: Troponin I < 50 ng/L (<or=60)
[2021-10-14 02:41] LABS: Source Nasal/Nares
[2021-10-14] MEDS: Enoxaparin 40 MG/0.4 ML SYR SC (03:32)
[2021-10-14 07:09] LABS: Calculated LDL 67 mg/dL (<100); Cholesterol 151 mg/dL (<200); HDL Cholesterol 53 mg/dL (40-60); Triglyceride 159 mg/dL (<150)
[2021-10-14 07:10] LABS: Anion Gap 10.6 mmol/L (3-11); BUN 16 mg/dL (7-18); CO2 24.4 mmol/L (21.0-32.0); Calcium 8.9 mg/dL (8.5-10.1); Chloride 107 mmol/L (98-107); Glucose 133 mg/dL (74-106); Potassium 3.7 mmol/L (3.5-5.1); Sodium 142 mmol/L (136-145); Troponin I < 50 ng/L (<or=60)
--- NOTE | 2021-10-14 07:30 | RT.EKG_ITS ---
APPROVED REPORT Exam: Resting ECG Reason for Exam: chest pain Patient Location: I HR:64 bpm ECG Measurements Heart Rate 64 AXIS IN 133 P 39 QRSd 90 QRS 2 QT 417 T 24 QTc 431 Conclusion Sinus rhythm...normal P axis, V-rate 50- 99 Normal Electrocardiogram
[2021-10-14 07:38] LABS: Lab Add On Test DONE
[2021-10-14 08:02] LABS: Hemoglobin A1C 7.2 % (<5.7)
[2021-10-14] MEDS: Insulin Aspart 300 UNITS/3 ML PEN SC ×2 (08:32→21:42)
[2021-10-14] MEDS: Cholecalciferol (Vitamin D3) 1,000 UNIT TAB 1000 UNITS PO (08:36)
[2021-10-14] MEDS: Losartan 50 MG TAB 100 MG PO (08:36)
[2021-10-14] MEDS: Omeprazole 20 MG CAPCR PO (08:36)
[2021-10-14] MEDS: Metoprolol 25 MG TAB PO ×2 (08:36→20:44)
--- NOTE | 2021-10-14 09:33 | PDOC.CMIN ---
- If Service Date Differs Date of service: 10/14/21 Time of Service: 09:33 Care Management Initial Assess REASON FOR HOSPITALIZATION:: Chest Pain PAST MEDICAL HISTORY/PAST SURGICAL HISTORY:: All Active Problems. Unstable angina (Acute). Palpitation (Acute). Chest pain (Acute). Thyroid lesion (Acute). Breath shortness (Acute). Surgical History. Colonoscopy - MAC (06/12/17). H/O vasectomy. H/O: hemorrhoidectomy. Release for de Quervain's tenosynovitis of hand (03/25/14). Right. Trigger Finger release (03/25/14). Right Thumb PREVIOUS FUNCTIONAL STATUS/SOCIAL/FAMILY SUPPORTS:: Hardy lives in [place] with his , Patrizia. He works for [employer] He has two sons, one who lives in [place], and the other is currently stationed in [place]. He is independent at baseline. CURRENT FUNCTIONAL STATUS:: Hardy was sitting up in bed when CM met with him. He reported that as long as he isn't moving too much, he is feeling well. Per report, his EKG and troponin levels are negative, but due to risk factors he will remain at [facility] until Saturday, when he will have a stress test and an echo. Hardy stated that he feels comfortable staying, as he would like to be safe. He does not feel that he will require any services upon discharge. CM will continue to follow. ADVANCE DIRECTIVES:: None on file. CM will offer forms. Has patient been provided with info about the portal/API?: Yes Did the patient sign up for the portal?: No CODE STATUS:: Full Code INSURANCE COVERAGE / FINANCIAL ISSUES:: [facility] CURRENT HOME/COMMUNITY SERVICES/EQUIPMENT:: No current services or equipment. PRIMARY CARE PHYSICIAN:: Wilian Patel POTENTIAL DISCHARGE NEEDS:: Evaluations for further needs, follow up appointments. PATIENT/FAMILY EDUCATION NEEDS:: Review discharge instructions regarding activity levels and medications, discussion of self care needs including ask me three. ANTICIPATED BARRIERS TO DISCHARGE:: None identified at this time. TRANSPORTATION:: Via private vehicle by his . PLAN:: Hardy will return home once medically cleared by . He will be driven home via private vehicle by his when ready. He will follow up with his PCP and discharge plan of care. CM will continue to follow.
--- NOTE | 2021-10-14 10:59 | NUR.NOTE ---
Nursing Note: Held patients Lipitor this morning, he told nursing that this was a HS med and he had taken his dose prior to coming here yeterday evening. Notified CCC
[2021-10-14 15:30] LABS: COVID-19 PCR Negative (Negative)
--- NOTE | 2021-10-14 18:25 | NUR.NOTE ---
Nursing Note: Patient was comfortable at last rounding. He was reminded to notify nursing if he has any episodes of chest pain
[2021-10-14] MEDS: Atorvastatin 40 MG TAB PO (20:44)
[2021-10-15] VITALS (8 sets, daily range): BP systolic 130–140; BP diastolic 60–70; PULSE 57–66; RESP 16–18; TEMP 35.5–36.4; O2SAT 96–98
[2021-10-15] MEDS: Enoxaparin 40 MG/0.4 ML SYR SC (03:21)
[2021-10-15] MEDS: Losartan 50 MG TAB 100 MG PO (08:36)
[2021-10-15] MEDS: Metoprolol 25 MG TAB PO (08:36)
[2021-10-15] MEDS: Cholecalciferol (Vitamin D3) 1,000 UNIT TAB 1000 UNITS PO (08:36)
[2021-10-15] MEDS: Omeprazole 20 MG CAPCR PO (08:36)
[2021-10-15] MEDS: Insulin Aspart 300 UNITS/3 ML PEN SC (12:04)
--- NOTE | 2021-10-15 12:21 | W.PM.PROGNOT ---
Date of Service Date of service: 10/15/21 Time of Service: 12:21 Assessment and Plan Assessment and plan (1) Unstable angina: Status: Acute Assessment and plan: Continue asa, statin, beta nils. Continue to monitor on tele. For echo and MPI tomorrow. (2) HTN (hypertension): Status: None Assessment and plan: Hold lopressor prior to MPI. Continue losartan. (3) DM (diabetes mellitus): Status: None Assessment and plan: A1C 7.2 Continue to hold Jardiance and metformin. Continue SSI (4) Hyperlipidemia: Status: Chronic Assessment and plan: Does have hypertriglyceridemia. Continue statin. (5) DVT prophylaxis: Status: Acute Assessment and plan: SC lovenox (6) Discharge planning issues: Status: Acute Assessment and plan: Full code Disposition pending MPI results. Subjective Subjective Interval history since last seen: Mr Lyn stated that he felt a wave of anxiety and palpitations while eating breakfast, but this had subsided. No dizziness, CP/SOB/nausea now. Exam Narrative Exam Narrative: General: Pleasant middle-aged male, A&Ox3, NAD HEENT: EOMI, MMM Heart: RRR, no m/r/g Lungs: CTAB Abdomen: soft, nontender, nondistended Extremities: no edema BLE's Objective Last Vital Signs Temp 36.4 C L 10/15/21 11:41 Pulse 60 10/15/21 11:41 Resp 17 10/15/21 11:41 BP 132/68 10/15/21 11:41 Pulse Ox 98 10/15/21 11:41 Laboratory Results - last 24 hr 10/14/21 01:55 SARS-CoV-2 (PCR) Negative
[2021-10-15] MEDS: Atorvastatin 40 MG TAB PO (20:09)
[2021-10-16] VITALS (7 sets, daily range): BP systolic 112–140; BP diastolic 60–80; PULSE 53–98; RESP 12–18; TEMP 35.5–36.3; O2SAT 95–98
--- NOTE | 2021-10-16 | DI.NM_ITS ---
APPROVED REPORT Exam: Exercise Treadmill Patient Location: In-Patient Room/Bed: [facility] Stress Nurse: Chel Posey RN Ordering Provider:FRANCISCO SALGADO, Contact Number: [phone] BMI: 30.12 Baseline Rhythm: Sinus Rhythm Comment: abnormal R wave progression Indications: CHEST PAIN Medical History Medical History: HTN, HLD, DM, Palpitations Cardiac Medications: Omeprazole, Metoprolol tartrate, Metformin, Losartan, Empagliflozin, Atorvastin Allergies: Amlodipine, Hydrochlorothiazide, Lisinopril, Oxycodone, Pravastatin Cardiac Risk Factors: Hyperlipidemia, Diabetes (non-insulin), FHX of CAD Previous Cardiac Procedures: None Pretest Chest Pain Characteristics: None Exercise History: Sedentary Physical Disabilities: None Lung Sounds: Clear to auscultation Heart Sounds: Regular Stress Test Details Test: Exercise stress testing was performed using a Mario protocol. Nuclear Acquisition: Rest Tc-99m/Stress Tc-99m 1 day Rest Isotope: Tc-99m Sestamibi. Dose: 10.7 Date: 10/16/2021 Injection Time: 0815 Stress Isotope: Tc-99m Sestamibi. Dose: 35.0 Date: 10/16/2021 Injection Time: 1010 HR Resting HR Supine: 62 bpm Max Heart Rate (APMHR): 159.251084 bpm Resting HR Standin bpm Target HR (85% APMHR): 135.154489 bpm Max HR Achieved: 167 bpm % of APMHR: 105.03 Recovery HR: 85 bpm HR response to stress: Normal HR response to stress BP Resting BP Supine: 150/8 mmHg Resting BP Standin/82 mmHg Max BP: 194/86 mmHg Recovery BP: 138/70 mmHg BP response to stress: Normal blood pressure response to stress. ECG Resting ECG: Sinus Rhythm Ectopy: None Comment: abnormal R wave progression Stress ECG: Sinus Tachycardia ST Change: No significant ST segment changes noted Arrhythmia: PVCs starting in stage 3 and increasing in frequency until cessation of exercise Recovery ECG: Sinus Rhythm Recovery ST Change: No significant ST segment changes noted Recovery Arrhythmia: None Clinical Reason for Termination: Fatigue Stress Symptoms: Dyspnea Exercise duration: 11 min30 sec Highest Stage Reached: Stage 4: 4.2 mph at 16% grade. Exercise capacity: 13.48 METs Edgar Treadmill Score: 11 Rate Pressure Product: 81008 Stress ECG Conclusion 1. The patient exercised for 11 minutes and 30 seconds (13.5 METS) 2. Patient had no symptoms suggestive of ischemia 3. The patient had no ECG changes suggestive of ischemia though did develop PVCs during exercise. Edgar Treadmill Score is 11 which is Low risk. Stress Test Summary STAGE Time (mins) Speed (mph) Grade (%) HR BP SYMPTOMS METS Supine 62 150/84 Standing 75 148/82 1 3 1.7 10 89 152/80 4.6 2 6 2.5 12 100 160/80 7 3 9 3.4 14 122 158/86 10.2 4 12 4.2 16 164 172/86 12.9 1 min recovery 138 194/86 3 min recovery 90 192/82 6 min recovery 86 146/76 9 min recovery 85 138/70 MPI Conclusion The patient's ejection fraction was 68% with stress. There were no wall motion abnormalities. There is no evidence of ischemia or infarct on the imaging portion of the exam. This represents a normal SPECT stress test. Radiologist Interpretation Radiologist agrees with Slot Supervisor's Interpretation. Radiologist Interpretation by: Lida Stewart MD Interpretation Date/Time: 10/16/2021 16:43:26
[2021-10-16] MEDS: Enoxaparin 40 MG/0.4 ML SYR SC (03:14)
--- NOTE | 2021-10-16 07:32 | DI.US_ITS ---
APPROVED REPORT EXAM: Comprehensive 2D, Doppler, and color-flow Echocardiogram Patient Location: In-Patient Room/Bed: 215 Registered Nurse Hh Case Manager: Brooke Mcgee RDCS (AE) Indications: Chest pain, Evaluate LV function Other Information Study Quality: Good Conclusion Left Ventricle : The left ventricle is normal size. The left ventricular systolic function is normal. The left ventricular ejection fraction is within the normal range. There is normal left ventricular wall thickness. There is normal LV segmental wall motion. The left ventricular diastolic function is normal. LVEF is 59%. Right Ventricle : The right ventricle is normal size. The right ventricular systolic function is norm al. The RVSP is 27.5mmHg. Atria : The left atrium size is normal. The right atrium size is normal. Great Vessels : The aortic root is normal in size. The ascending aorta is normal in size. Aortic arch is normal in caliber. IVC is normal in size and collapses >50% with inspiration. See remainder of study for details. Wall motion Left Ventricle The left ventricle is normal size. The left ventricular systolic function is normal. The left ventric ular ejection fraction is within the normal range. There is normal left ventricular wall thickness. T here is normal LV segmental wall motion. The left ventricular diastolic function is normal. There is no ventricular septal defect visualized. LVEF is 59%. Right Ventricle The right ventricle is normal size. The right ventricular systolic function is normal. The RVSP is 27 .5mmHg. Atria The left atrium size is normal. The right atrium size is normal. The interatrial septum is intact wit h no evidence for an atrial septal defect. Aortic Valve The aortic valve is normal in structure. Aortic valve is trileaflet. There is no aortic valvular sten osis. No aortic regurgitation is present. Mitral Valve The mitral valve is normal in structure. No evidence of mitral valve stenosis. Trace mitral regurgita tion. Tricuspid Valve The tricuspid valve is normal in structure. There is no tricuspid valve stenosis. Trace tricuspid reg urgitation. Pulmonic Valve The pulmonary valve is normal in structure. There is no pulmonic valvular stenosis. There is no pulmo kenny valvular regurgitation. Great Vessels The aortic root is normal in size. The ascending aorta is normal in size. Aortic arch is normal in ca liber. IVC is normal in size and collapses >50% with inspiration. Pericardium There is no pericardial effusion. 2D Dimensions IVSD d PLAX 1.02 cm M: 0.6-1.2 LV Vol A2C d MOD 108.0 mL LVPW d PLAX 1.01 cm M: 0.6 - 1.2 LV Vol A4C d MOD 89.0 mL LVID d PLAX 4.74 cm M: 4.2 - 5.8 LA vol/ BSA A2C s A-L 22.6 mL/m2 LVDs 3.10 cm M: 2.5 - 4.0 LA vol/ BSA A4C s A-L 12.6 mL/m2 Ao Root d 3.11 cm M: 3.1 - 3.7 LA Vol/ BSA Biplane s A-L 17.3 mL/m2 RA Area A4C 9.38 cm2 LA Area A4C s MOD 12.24 cm2 RA Vol/ BSA A4C s A-L 9.4 mL/m2 LA Area A2C s MOD 15.99 cm2 Ao Asc Diam d 3.15 cm M: 2.6 - 3.4 LV EF A4C MOD 57.0 % LV EF Teichholz 62.8 % LV EF A2C MOD 58.9 % LVEF (Blair's) 57.35 % M: 52 - 72 LV EF Biplane MOD 57.4 % LV Volume 74.22 mL M: 62 - 150 SV 57.40 mL LV Volume Index 35.85 mL/m2 M: 34 - 74 SV Index 27.73 mL/m2 LV Vol Biplane MOD 100.1 mL FS 33.95 % M-Mode TAPSE 2.04 cm (M/F) >1.7 LV Diastology MV E' medial 0.070 (>0.07 m/s) E/A Ratio 0.8 LV E/e MED 7.85 (<14) MV E Vmax 0.56 (0.4-1.3 m/s) MV E' lateral 0.066 (>0.1 m/s) MV A Vmax 0.70 (0.4-1.3 m/s) LV E/e LAT 8.45 (<14) MV E/A Ratio 0.77 MV E/E' medial 7.90 MV E/E' lateral 8.49 Aortic Valve LVOT Area 3.35 cm2 AoV Area Vmax 2.33 cm2 LVOT Vmax 0.95 m/s AoV Area/ BSA (Vmax) 1.13 cm2/m2 LVOT Mean Dario. 0.65 m/s ZAYRA Mean Dario. 2.04 cm2 LVOT Peak Grad 3.6 mmHg ZAYRA Mean Dario. Index 0.99 cm2/m2 LVOT Mean Grad 1.9 mmHg LVOT VTI 0.185 m LVOT Diam s 2.05 cm AoV Vmax 1.37 m/s Velocity Ratio 0.69 AoV Mean Dario. 1.07 m/s AoV Peak Grad 7.5 mmHg LVOT SV 61.86 mL AoV Mean Grad 4.9 mmHg AoV VTI 0.243 m AoV Area VTI 2.55 cm2 AoV Area/ BSA (VTI) 1.23 cm/m2 Mitral Valve MV DT 363 (160-240 msec) MV PHT 105 msec MV Area PHT 2.09 cm2 MV VTI 0.233 m MV Area VTI 2.66 (4.0-6.0 cm2) Pulmonary Valve PV Vmax 0.99 (0.5-1.5 m/s) RVOT Peak Gr. 2.70 mmHg PV Peak Grad 4.0 mmHg RVOT Mean Gr. 1.45 mmHg PV Mean Grad 2.3 mmHg RVOT VTI 0.154 m PV VTI 0.173 m RVOT Vmax 0.82 m/s Tricuspid Valve TR Peak Grad 24.5 mmHg TR Vmax 2.48 m/s RA Pressure 3.00 mmHg RVSP (TR) 27.5 mmHg
--- NOTE | 2021-10-16 10:10 | W.INDIABCONS ---
Date of service: 10/16/21 Time of Service: 10:10 Diabetes Inpatient Consult Reason for Visit: dm DESCRIPTION/ASSESSMENT: 61 year old male admitted with angina with hx of DM, HTN, HLD. BMI indicates overweight status. Most recent A1C (10/14/21): 7.2% indicating excellent glycemic management. Current DM home meds: 25 mg jardiance, 1000 mg metformin BID. Current meds and life style managing Dm well at this time. Following CHO diet with 100% intake at most meals. INTERVENTION: no intervention needed at this time PLAN: will continue to follow and support. Time Spent in Nutritional Counseling and Treatment: 0
--- NOTE | 2021-10-16 11:03 | PDOC.CMDIS ---
- If Service Date Differs Date of service: 10/16/21 Time of Service: 11:04 LACE Index Scoring Tool - Questions: Length of Stay (in days): 2 Acuity (Admit via E.D.?): Yes Comorbidities: Diabetes w/o Complication E.D. Visits: 2 - Answers: Total Score: 8 Risk of Readmission: Low Risk Care Management Discharge Reason for Hospitalization: Chest Pain Discharge Plan: Hardy will return home with his , Patrizia. He will follow up with his community providers and plan of care as prescribed. No additional services anticipated at this time. Patient/Family Education Needs: Review discharge instructions, discuss Ask Me Three.
[2021-10-16] MEDS: Insulin Aspart 300 UNITS/3 ML PEN SC (11:25)
[2021-10-16] MEDS: Cholecalciferol (Vitamin D3) 1,000 UNIT TAB 1000 UNITS PO (11:25)
[2021-10-16] MEDS: Losartan 50 MG TAB 100 MG PO (11:25)
[2021-10-16] MEDS: Omeprazole 20 MG CAPCR PO (11:33)
--- NOTE | 2021-10-16 15:45 | DSE_ITS ---
Date of service: 10/16/21 Time of Service: 15:51 DS: Diagnosis Discharge Diagnosis (1) Musculoskeletal chest pain: Status: Acute (2) Exertional dyspnea: Status: Acute (3) HTN (hypertension): Status: None (4) DM (diabetes mellitus): Status: None (5) Hyperlipidemia: Status: Chronic Discharge Plan Disposition Patient Disposition: HOME Condition: Stable Discharge Details Reason For Visit: Chest Pain Admit Date/Time: 10/14/21 00:47 Admit Provider: Jason Vazquez Attending Provider: Jason Vazquez Primary Care Provider: Wilian Patel Hospital Course Hospital Course: Mr Lyn is a 61 year old male with PMHx of NIDDM2, hypertension, hyperlipidemia, GERD, who was a patient on [facility] hospitalist service from 10/14/21 until 10/16/21 having presented with exertional dyspnea and chest wall discomfort. He ruled out for ACS with negative serial troponins and no evidence of acute ischemia on the EKGs. He did not have any arrythmic events on telemetry. He had an echocardiogram which revealed a preseved LVEF (59%), RVSP of 27.5 mmHg, normal RV size and function, no hemodynamically significant valvular issues. He had an MPI stress test which was read as negative (final read not yet available at the time of discharge, but discussed with cardiology). The patient states that his chest discomfort is relieved with tylenol, which he was instructed to take. Since the predominant complaint is exertional dyspnea, I am sending a referral for PFTs on discharge. He is stable for discharge home today. The patient should follow up with his PCP in 1-2 weeks. Care for patient as well as completion of his discharge summary on day of discharge took 35 minutes. Home Meds and New Rx's Prescriptions: New acetaminophen [Tylenol Arthritis Pain] 650 mg tablet extended release 650 mg PO Q8H PRNQty: 30 0RF Continued naproxen 500 mg tablet 250 mg PO BID PRN0RF atorvastatin [Lipitor] 40 MG tablet 40 mg PO QPM 0RF metformin 500 MG tablet 1,000 mg PO BID 0RF losartan 100 MG tablet 100 mg PO DAILY 0RF cholecalciferol (vitamin D3) [Vitamin D3] 400 UNIT capsule 1,000 units PO DAILY 0RF metoprolol tartrate 25 MG tablet 25 mg PO BID 0RF omeprazole 20 MG tablet,delayed release (DR/EC) 20 mg PO DAILY 0RF gabapentin 300 MG capsule 300 mg PO HS PRN PRN0RF Jardiance 25 mg Tablet 25 mg PO DAILY 0RF Discharge Instructions Instructions: Chest Pain (DC), Dyspnea (DC), Pulmonary Function Tests (DC) Additional Instructions: Return to the hospital with any worsening of your shortness of breath, chest pain that is not relieved with tylenol, fever, or bleeding. Follow up with your PCP as scheduled. Follow up for PFTs. Referrals: Patrick Parks MD [ NON-[facility] STAFF PHYSICIAN] - 10/23/21 8:25 am Activity:: Activity as Tolerated Equipment/Supplies:: No Equipment Needed Diet:: Carb Counting Discharge Orders Discharge Orders: Discharge Order (Routine); Ordered 10/16/21 Ordered By: Hyacinth Hobson Other Ambulatory Orders: PFT ([place]/[facility]) (Routine) Timeframe: 2 Weeks Facility: [facility] - Location: Respiratory Therapy Ordered By: Hyacinth Hobson DS: Summary Time Spent with Patient providing and/or coordinating discharge services: Greater than 30 minutes Status at Discharge Functional status at discharge: independent ambulation Overall status at discharge: patient is back to baseline Mental Status: mental status grossly normal Speech and Movement: speech and movement normal Mood: congruent mood Affect: normal affect Exam Narrative Exam Narrative: General: Pleasant middle-aged male, A&Ox3, NAD HEENT: EOMI, MMM Heart: RRR, no m/r/g Lungs: CTAB Abdomen: soft, nontender, nondistended Extremities: no edema BLE's Psych Mental Status: mental status grossly normal Speech and Movement: speech and movement normal Mood: congruent mood Affect: normal affect DS: Data Vitals/I&O Vitals and I&O: Vital Signs Temperature 35.5 C L 10/16/21 11:05 Temperature Source Tympanic 10/16/21 11:05 Pulse 64 10/16/21 15:12 Pulse Rhythm Regular 10/16/21 13:45 Pulse 73 10/14/21 02:20 Respiratory Rate 12 10/16/21 11:05 Respiratory Effort 10/16/21 13:45 Respiratory Depth Normal 10/16/21 13:45 Respiratory Pattern Normal 10/16/21 13:45 Blood Pressure 140/78 10/16/21 11:17 Blood Pressure Mean 89 10/14/21 02:16 Blood Pressure Position Supine 10/13/21 22:49 Pulse Oximetry 97 10/16/21 11:05 Oxygen Delivery Method Room Air 10/16/21 11:05 Oxygen Flow Rate 0 10/16/21 11:05 Pain Level 0 10/16/21 11:05 Comment 10/16/21 11:05 Intake & Output 10/15/21 10/16/21 10/16/21 23:59 11:59 23:59 Intake Total 380 / 780 180 / 180 Balance 380 / 780 180 / 180 Weight 91.1 kg Intake: Oral 380 / 780 180 / 180 Other: Urine Appearance Clear Comment pt voiding independently ad mariah. pt denies dysuria Per patient he has been voiding Stool Characteristics Soft Formed Brown Voiding Methods Toilet Toilet Data Completed and Pending Completed studies during hospitalization [Text1]: CTA chest: Negative CT angiogram of the chest. No evidence of pulmonary embolic disease. Echo: Left Ventricle : The left ventricle is normal size. The left ventricular systolic function is normal. The left ventricular ejection fraction is within the normal range. There is normal left ventricular wall thickness. There is normal LV segmental wall motion. The left ventricular diastolic function is normal. LVEF is 59%. Right Ventricle : The right ventricle is normal size. The right ventricular systolic function is normal. The RVSP is 27.5mmHg. Atria : The left atrium size is normal. The right atrium size is normal. Great Vessels : The aortic root is normal in size. The ascending aorta is normal in size. Aortic arch is normal in caliber. IVC is normal in size and collapses >50% with inspiration. See remainder of study for details. MPI stress test: preliminary read - negative. Official read still pending at the time of discharge. Pending studies at discharge: Official read of the MPI stress test. Labs on day of discharge: Labs from last 24 hours 10/16/21 09:11 Add-On Test Request Cancelled [facility] All Active Problems (Updated 10/16/21 @ 15:52 by Hyacinth Hobson MD) Musculoskeletal chest pain (Acute) Exertional dyspnea (Acute) Discharge planning issues (Acute) DVT prophylaxis (Acute) Unstable angina (Acute) Palpitation (Acute) Chest pain (Acute) Thyroid lesion (Acute) Breath shortness (Acute) Hyperlipidemia (Chronic) Surgical History Colonoscopy - MAC (06/12/17) H/O vasectomy H/O: hemorrhoidectomy Release for de Quervain's tenosynovitis of hand (03/25/14) Right Trigger Finger release (03/25/14) Right Thumb Family History Father Brain cancer Mother Diabetes Acute Crohn's disease Social History Smoking/Tobacco Use Status: Never Smoking risk assessment performed?: Yes Alcohol Intake: never Drug use: Never Substance use type: does not use Household members: family Current gender identity: male What is your relationship status?: Panel score (0-1 are the most socially isolated patients): 1 Velma/Spiritism: Mormonism Special velma needs: No Seatbelt use: always Do you feel safe at home: Yes Do you feel safe in your relationship?: Yes
== END 2021-10-16 16:51 | disposition home or self-care (01) | DRG 313 ==
LOC: ER 10-14 01:01 → MS 10-14 03:02
PROVIDERS: Admitting Provider Internal Medicine; Emergency Provider Student in an Organized Health Care Education/Training Program; PCP Internal Medicine; Visit Provider Internal Medicine
DX: R07.89 Other chest pain (principal); Z82.49 Family history of ischemic heart disease and other diseases of the circulatory system; E11.9 Type 2 diabetes mellitus without complications; Z79.84 Long term (current) use of oral hypoglycemic drugs; I10 Essential (primary) hypertension; E78.5 Hyperlipidemia, unspecified; K21.9 Gastro-esophageal reflux disease without esophagitis; R06.09 Other forms of dyspnea
CPT/HCPCS: 36415; 71275; 78452; 80048; 80053; 80061; 87635; 93005; 93306; 96365; 96366; 96368; 99285; J1650; 83036; 83735; 83880; 84443; 84484; 85025; 85379; 85610; 85730; 93010; 93017; 99222; 99232; 99239; J3480; J3490

== ENCOUNTER 2021-10-20 18:11 | Outpatient (REF) | payer OTHER, SELFPAY ==
[2021-10-20 14:26] LABS: C-Reactive Protein 0.06 mg/dL (0.0-0.3)
[2021-10-23 11:08] LABS: Lyme Ab w Rflx to Lyme Confirm Negative (Negative)
[2021-10-23 22:03] LABS: Anaplasma phagocytophilum Negative (Negative); B. miyamotoi PCR Negative (Negative); Babesia divergens/MO-1 Negative (Negative); Babesia duncani Negative (Negative); Babesia microti Negative (Negative); Ehrlichia chaffeensis Negative (Negative); Ehrlichia ewingii/canis Negative (Negative); Ehrlichia muris eauclairensis Negative (Negative)
== END 2021-10-20 18:12 | disposition home or self-care (01) ==
LOC: NCHCN 18:11
PROVIDERS: PCP Internal Medicine; Visit Provider Family Medicine
DX: E04.1 Nontoxic single thyroid nodule (principal); R53.83 Other fatigue; R06.09 Other forms of dyspnea
CPT/HCPCS: 87798; 86140; 86618

== ENCOUNTER 2021-10-26 04:07 | Outpatient (CLI) | payer OTHER, SELFPAY ==
[2021-10-26] MEDS: Albuterol HFA 18 GM 200 PUFF INH IH (09:01)
[2021-10-26] MEDS: Inhaler, Assist Device 1 EACH MC (09:02)
== END 2021-10-26 04:08 | disposition home or self-care (01) ==
LOC: RT 04:07
PROVIDERS: PCP Internal Medicine; Visit Provider Internal Medicine
DX: R06.09 Other forms of dyspnea (principal)
CPT/HCPCS: 94060; 94726; 94729

== ENCOUNTER 2022-03-08 03:33 | Outpatient (CLI) | payer OTHER, SELFPAY ==
--- NOTE | 2022-04-05 15:52 | W.CARDEVENT ---
Date of service: 04/05/22 Time of Service: 15:52 Cardiac Event Recorder Referring Provider:: Patrick Parks Indications:: Palpitations Cardiac Event Note: This is a 14-day cardiac event monitor, ordered for palpitations Predominant rhythm was sinus with an average heart rate of 67. Minimum was 51, maximum 113 There were rare ventricular ectopic beats, 1 ventricular triplet There were very rare atrial premature beats.. A total of 8 self-limited atrial runs occurred. The longest of these was 15 beats in duration There was no atrial fibrillation, no high-grade AV block, no pauses greater than 3 seconds Patient symptoms were reported. These generally corresponded to premature ventricular contractions, occasionally to sinus rhythm. The majority of premature ventricular contractions were asymptomatic
== END 2022-03-08 03:34 | disposition home or self-care (01) ==
LOC: RT 03:33
PROVIDERS: PCP Internal Medicine; Visit Provider Family Medicine
DX: R00.2 Palpitations (principal)
CPT/HCPCS: 93246

== ENCOUNTER 2022-04-05 15:52 | Outpatient (CLI) | payer OTHER, SELFPAY | END 2022-04-05 15:53 | LOC: CARDO 04-09 08:49 | PROVIDERS: PCP Internal Medicine; Referring Provider Family Medicine; Visit Provider Internal Medicine Cardiovascular Disease | DX: R07.9 Chest pain, unspecified (principal); R00.0 Tachycardia, unspecified | CPT/HCPCS: 93248 ==

== ENCOUNTER 2022-08-01 07:27 | Emergency (ER) | payer OTHER, SELFPAY ==
[2022-08-01 07:30] VITALS: BP 159/80; PULSE 97; RESP 16; TEMP 36.7; O2SAT 99
--- NOTE | 2022-08-01 08:18 | ED.GENADUL_ITS ---
Discharge Plan Disposition Patient Disposition: Home Condition: Stable Discharge Details Clinical Impression: Bilateral leg pain, Swelling of both ankles, Elevated bilirubin, CRP elevated Primary Care Provider: Patrick Parks ED Provider: Endy Ritchie Home Meds and New Rx's Prescriptions: Continued naproxen 500 mg tablet 500 mg PO BID PRN losartan 100 MG tablet 100 mg PO DAILY cholecalciferol (vitamin D3) [Vitamin D3] 400 UNIT capsule 2,000 units PO DAILY metoprolol tartrate 25 MG tablet 25 mg PO BID gabapentin 300 MG capsule 300 mg PO HS PRN PRN Jardiance 25 mg Tablet 25 mg PO DAILY famotidine [Pepcid] 40 mg Tablet 40 mg PO DAILY acetaminophen [Acetaminophen Extra Strength] 500 mg Tablet 500 mg PO PRN PRN Rybelsus 7 mg tablet 1 tab PO DAILY No Action atorvastatin [Lipitor] 40 MG tablet 40 mg PO QPM Discharge Instructions Instructions: Leg Pain (ED) Additional Instructions: I recommended stopping Lipitor to see if symptoms improved. Please follow-up with your primary care physician. Be sure to discuss all results today. Your C-reactive protein level which is a nonspecific inflammatory marker was elevated. Your total bilirubin which is a measure of liver function was slightly elevated. Return to the emergency department immediately for any worsening or new concerning symptoms. Referrals: Patrick Parks MD [Primary Care Provider] - Medical Decision Making 820 --62-year-old male with history of diabetes, hypertension and hyperlipidemia here with atraumatic bilateral lower extremity pain that started yesterday. Patient has some lower bilateral lower extremity swelling and is tender in his ankles right greater than left. Also some pain posterior lower leg. Patient is hemodynamically stable. No signs of infection. Consider acute kidney injury. Plan to check labs. If nondiagnostic will consider ultrasound of the lower extremities. I will give acetaminophen IV for discomfort. 1025 --labs reviewed. Normal creatinine. No leukocytosis. Total bilirubin mildly elevated at 1.4. C-reactive protein is elevated at 13. ESR is normal. Ultrasound of the lower extremities was interpreted by radiology: No DVT. Patient reassessed and did have some minimal improvement with acetaminophen. I will give ibuprofen. Unclear etiology for pain and swelling. Consider lymphedema versus inflammatory polyarthritis. Plan will be for close outpatient follow-up with PCP. All results and plan were discussed with the patient. Patient stable at time of discharge. Usual customary discharge instructions were reviewed. HPI General Mode of arrival: ambulatory . Date/Time Provider Initiated Documentation: 08/01/22 07:28 . Limitations to Documentation: no limitations . Information obtained by: patient . HPI Narrative: 62-year-old male with history of diabetes, hypertension presents with chief complaint of leg pain. Patient notes pain started yesterday upon waking. Pain localized to bilateral lower legs. Pain is worse right now on his right ankle but also present in left ankle as well as his posterior lower legs. No modifiers. Patient denies trauma. No associated fever. He does note he had 5 days of loose stool last week that has resolved. No associated rash. Related Data Home Medications Medication Instructions Recorded Confirmed atorvastatin 40 mg tablet (Lipitor) 40 mg PO QPM 03/19/14 08/01/22 cholecalciferol (vitamin D3) 10 2,000 units PO DAILY 03/19/14 08/01/22 mcg (400 unit) capsule (Vitamin D3) losartan 100 mg tablet 100 mg PO DAILY 03/19/14 08/01/22 metoprolol tartrate 25 mg tablet 25 mg PO BID 03/19/14 08/01/22 gabapentin 300 mg capsule 300 mg PO HS PRN PRN 06/11/17 08/01/22 naproxen 500 mg tablet 500 mg PO BID PRN 04/22/18 08/01/22 empagliflozin 25 mg tablet 25 mg PO DAILY 10/14/21 08/01/22 (Jardiance) acetaminophen 500 mg tablet 500 mg PO PRN PRN 08/01/22 08/01/22 (Acetaminophen Extra Strength) famotidine 40 mg tablet (Pepcid) 40 mg PO DAILY 08/01/22 08/01/22 semaglutide 7 mg tablet (Rybelsus) 1 tab PO DAILY 08/01/22 08/01/22 Allergies Allergy/AdvReac Type Severity Reaction Status Date / Time amlodipine Allergy Mild Verified 08/01/22 07:37 hydrochlorothiazide Allergy Mild Verified 08/01/22 07:37 lisinopril Allergy Mild Verified 08/01/22 07:37 oxycodone HCl [From Percocet] AdvReac Nausea Verified 08/01/22 07:37 pravastatin AdvReac myalgia Verified 08/01/22 07:37 General Stated Complaint: Orthopedic RICHARD: 4 Review of Systems All systems reviewed & are unremarkable except as noted in HPI and below Constitutional Constitutional: Denies fever(s) Musculoskeletal Musculoskeletal: Reports as per HPI Integumentary/Breasts Skin/Breast: Denies rash PFSH All Active Problems (Updated 08/01/22 @ 10:33 by Endy Ritchie MD) Bilateral leg pain (Acute) Swelling of both ankles (Acute) Elevated bilirubin (Acute) CRP elevated (Acute) Musculoskeletal chest pain (Acute) Exertional dyspnea (Acute) Chest pain (Acute) Thyroid lesion (Acute) Breath shortness (Acute) Hyperlipidemia (Chronic) Surgical History Colonoscopy - MAC (06/12/17) H/O vasectomy H/O: hemorrhoidectomy Release for de Quervain's tenosynovitis of hand (03/25/14) Right Trigger Finger release (03/25/14) Right Thumb Family History Father Brain cancer Mother Diabetes Acute Crohn's disease Social History Smoking/Tobacco Use Status: Never Smoking risk assessment performed?: Yes Alcohol Intake: never Drug use: Never Substance use type: does not use Household members: family Current gender identity: male What is your relationship status?: Panel score (0-1 are the most socially isolated patients): 1 Velma/Latter Day: Jainism Special velma needs: No Seatbelt use: always Do you feel safe at home: Yes Do you feel safe in your relationship?: Yes Exam Const General: cooperative and no acute distress HENMT Mouth: moist mucous membranes Eyes Conjunctivae: normal conjunctivae Sclera: normal sclerae Resp Auscultation: clear to auscultation bilaterally, no rales, no rhonchi and no wheezes Cardio Rate: regular rate and not tachycardic Rhythm: regular rhythm GI Palpation: soft, not firm, no guarding, no masses, not rigid and nontender Skin General skin exam: no rashes or lesions noted Neuro General: patient alert, patient awake and tone normal Extrem Other: Mild swelling bilateral ankles, right ankle tender to palpation laterally, some tenderness posterior lower legs. No erythema or ecchymosis Psych Appearance: grossly normal Mental Status: mental status grossly normal Course Vital Signs Vital signs: Vital Signs Temperature 36.7 C 08/01/22 07:30 Pulse 97 H 08/01/22 07:30 Respiratory Rate 16 08/01/22 07:30 Blood Pressure 159/80 H 08/01/22 07:30 Pulse Oximetry 99 08/01/22 07:30 Temperature 36.7 C 08/01/22 07:30 Temperature Source Skin 08/01/22 07:30 Pulse 97 H 08/01/22 07:30 Respiratory Rate 16 08/01/22 07:30 Respiratory Effort 08/01/22 07:42 Blood Pressure 159/80 H 08/01/22 07:30 Pulse Oximetry 99 08/01/22 07:30 Oxygen Delivery Method Room Air 08/01/22 07:30 Oxygen Flow Rate 0 08/01/22 07:30 Pain Level 9 08/01/22 07:43
[2022-08-01] MEDS: ACETAMINOPHEN 1,000 MG/100 ML BTL 400 MG IVPB (08:40)
[2022-08-01 08:45] LABS: ESR 13 mm/hr (0-20)
[2022-08-01 08:49] LABS: Abs Immature Grans 0.07 10^3/uL (0.0-0.06); Absolute Basophil Count 0.04 10^3/uL (0.0-0.2); Absolute Eosinophil Count 0.04 10^3/uL (0.0-0.7); Absolute Lymphocyte Count 0.89 10^3/uL (1.2-3.4); Absolute Monocyte Count 1.11 10^3/uL (0.1-0.8); Absolute Neutrophil Count 7.13 10^3/uL (1.2-6.7); Basophils % 0.4; Eosinophils % 0.4; HCT 43.4 % (40.0-50.0); HGB 14.6 g/dL (13.5-17.5); Immature Grans % 0.8; Lymphocytes % 9.6; MCH 28.8 pg (27.0-33.0); MCHC 33.6 % (32.0-36.0); MCV 86 fL (80-95); MPV 9.9 fL (8.0-11.0); Neutrophils % 76.8; Platelet Count 172 10^3/uL (130-400); RBC 5.07 10^6/uL (4.36-5.78); RDW 13.6 % (11.8-14.1); RDW-SD 42.6 fL; WBC 9.28 10^3/uL (4.4-10.8)
[2022-08-01 09:18] LABS: ALT 23 U/L (16-63); AST 17 U/L (15-37); Albumin 3.8 g/dL (3.4-5.0); Alkaline Phosphatase 123 U/L (46-116); BUN 14 mg/dL (7-18); Bilirubin, Total 1.4 mg/dL (0.2-1.0); C-Reactive Protein 13.06 mg/dL (0.0-0.3); Calcium 9.2 mg/dL (8.5-10.1); Chloride 101 mmol/L (98-107); Glucose 145 mg/dL (74-106); Potassium 3.7 mmol/L (3.5-5.1); Sodium 138 mmol/L (136-145)
--- NOTE | 2022-08-01 09:44 | DI.US_ITS ---
Exam(s) US EXTREMITY VENOUS BI EXAM: US EXTREMITY VENOUS BI CLINICAL HISTORY: swelling, pain TECHNIQUE: Grayscale, color, and doppler imaging of the deep venous system of both lower extremities was performed. COMPARISON: US US THYROID from 11/10/2021 FINDINGS: There is no evidence of intraluminal thrombus and there is normal compression and augmentation demons trated within the common femoral veins, femoral veins, and popliteal veins of both lower extremities. In the calves the interrogated veins also exhibit normal compression/ augmentation properties. The greater saphenous veins also appear patent as do the saphenofemoral junctions bilaterally.. IMPRESSION: 1. No ultrasound evidence of DVT in either lower extremity. DATA REPOSITORY:
[2022-08-01] MEDS: Ibuprofen 600 MG TAB PO (10:13)
[2022-08-01 10:40] VITALS: BP 126/79; PULSE 79; TEMP 36.7; O2SAT 95
== END 2022-08-01 10:58 | disposition home or self-care (01) ==
PROVIDERS: Emergency Provider Student in an Organized Health Care Education/Training Program; PCP Family Medicine
DX: M79.604 Pain in right leg (principal); M79.605 Pain in left leg; M25.471 Effusion, right ankle; M25.472 Effusion, left ankle; R79.82 Elevated C-reactive protein (CRP); E80.7 Disorder of bilirubin metabolism, unspecified; I10 Essential (primary) hypertension; E11.9 Type 2 diabetes mellitus without complications
CPT/HCPCS: 36415; 80053; 85652; 96374; 99284; 85025; 86140; 93970; J0131

== ENCOUNTER 2022-08-07 12:35 | Outpatient (REF) | payer OTHER, SELFPAY ==
[2022-08-07 20:33] LABS: HCT 43.5 % (40.0-50.0); HGB 14.3 g/dL (13.5-17.5); MCH 28.4 pg (27.0-33.0); MCHC 32.9 % (32.0-36.0); MCV 86 fL (80-95); MPV 10.1 fL (8.0-11.0); Platelet Count 307 10^3/uL (130-400); RBC 5.04 10^6/uL (4.36-5.78); RDW 13.5 % (11.8-14.1); RDW-SD 42.3 fL; WBC 7.41 10^3/uL (4.4-10.8)
[2022-08-07 20:43] LABS: Creatine Kinase 40 U/L (39-308); Uric Acid 2.5 mg/dL (3.5-7.2)
[2022-08-09 14:46] LABS: ANA Interpretation Negative (Negative)
== END 2022-08-07 12:36 | disposition home or self-care (01) ==
LOC: NCHCN 12:35
PROVIDERS: PCP Family Medicine; Visit Provider Internal Medicine
DX: R22.42 Localized swelling, mass and lump, left lower limb (principal); M60.9 Myositis, unspecified
CPT/HCPCS: 82550; 85027; 84550; 86038

== ENCOUNTER → 2023-08-29 03:45 | Outpatient (CLI) | payer OTHER, SELFPAY ==
--- NOTE | 2023-08-29 | DI.RAD_ITS ---
Exam(s) XR SHOULDER LT COMPLETE 2+V EXAM: XR SHOULDER LT COMPLETE 2+V CLINICAL HISTORY: AUTH# [id number] PAIN IN SHOULDER [id number]. TECHNIQUE: 2D digital imaging was performed. COMPARISON: No exams were available for comparison FINDINGS: Five views. No evidence of fracture or dislocation. Although there is no diminution of the subacromial space, th ere is soft tissue calcification adjacent to the greater tuberosity consistent with calcific rotator cuff tendinitis-bursitis. There are no degenerative changes evident in the glenohumeral joint. IMPRESSION: Calcific rotator cuff tendinitis. DATA REPOSITORY: RADIATION DOSE DELIVERED:
--- NOTE | 2023-08-29 | DI.RAD_ITS ---
Exam(s) XR SHOULDER RT COMPLETE 2+V EXAM: XR SHOULDER RT COMPLETE 2+V CLINICAL HISTORY: AUTH# [id number] PAIN IN SHOULDER M25.519. TECHNIQUE: 2D digital imaging was performed. COMPARISON: CR XR SHOULDER LT COMPLETE 2+V from 08/29/2023 FINDINGS: Five views. No evidence of acute fracture or dislocation nor diminution of the subacromial space. Minimal degene rative changes in the glenohumeral joint. Moderate degenerative changes in the AC joint. There is a small calcification in the soft tissues immediately adjacent to the greater tuberosity con sistent with insertional calcific tendinitis. The amount of calcification is less than is evident at this location in the opposite-left shoulder. IMPRESSION: Calcific tendinitis as described above. DATA REPOSITORY: RADIATION DOSE DELIVERED:
== END ==
PROVIDERS: PCP Family Medicine; Visit Provider Internal Medicine
DX: M65.221 Calcific tendinitis, right upper arm (principal)
CPT/HCPCS: 73030

== ENCOUNTER 2024-05-04 21:32 | Outpatient (REF) | payer OTHER, SELFPAY ==
[2024-05-04 22:37] LABS: Microalb ug/mg Crea 38.7 ug/mg Cr
== END 2024-05-04 21:33 | disposition home or self-care (01) ==
LOC: NCHCN 21:32
PROVIDERS: PCP Family Medicine; Visit Provider Family Medicine
DX: E11.9 Type 2 diabetes mellitus without complications (principal)
CPT/HCPCS: 82043; 82570

== ENCOUNTER 2024-07-30 22:04 | Outpatient (REF) | payer OTHER, SELFPAY ==
[2024-07-30 21:56] LABS: COMMENT (LAB VIEW ONLY) 78.51 mg/dL; Microalb ug/mg Crea 22.2 ug/mg Cr
== END 2024-07-30 22:05 | disposition home or self-care (01) ==
LOC: NCHCN 22:04
PROVIDERS: PCP Family Medicine; Visit Provider Family Medicine
DX: E11.9 Type 2 diabetes mellitus without complications (principal)
CPT/HCPCS: 82043; 82570

== ENCOUNTER 2024-08-28 09:37 | Outpatient (CLI) | payer OTHER, SELFPAY ==
--- NOTE | 2024-08-28 16:04 | DI.RAD_ITS ---
Exam(s) XR CERVICAL SPINE COMP 4-5V EXAM: XR CERVICAL SPINE COMP 4-5V CLINICAL HISTORY: [id number], RT HAND NUMBNESS,RADICULOPATHY,M54.12. TECHNIQUE: 2D digital imaging was performed. Five views were performed. COMPARISON: CR XR CERVICAL SPINE COMP 4-5V from 05/10/2021 FINDINGS: BONES: No fracture or destructive lesion. Vertebral bodies are unremarkable. Facet degenerative zeus nges throughout. Neural foramen suboptimally profiled. DISKS: Moderate narrowing of the C 6 7 disc space. Endplate osteophytes which project mainly anterio rly. Intervertebral disc spaces are maintained. ALIGNMENT: Cervical spinal alignment is within normal limits. The odontoid and atlantoaxial articulat ions are normal. SOFT TISSUE: Normal. The lung apices are clear. IMPRESSION: Degenerative changes greatest at C6-7. DATA REPOSITORY: RADIATION DOSE DELIVERED:
== END 2024-08-28 09:57 ==
PROVIDERS: PCP Family Medicine; Visit Provider Internal Medicine
DX: M50.123 Cervical disc disorder at C6-C7 level with radiculopathy (principal)
CPT/HCPCS: 72050

== ENCOUNTER 2024-11-13 00:46 | Outpatient (CLI) | payer OTHER, SELFPAY ==
--- NOTE | 2024-11-13 | DI.MRI_ITS ---
Exam(s) MR UPPER JOINT LT WO EXAM: MR UPPER JOINT LT WO CLINICAL HISTORY: Pain in lt shoulder, M25.512. TECHNIQUE: Multiplanar multisequence MRI was performed. COMPARISON: CR XR SHOULDER LT COMPLETE 2+V from 08/29/2023 That FINDINGS: BONES: There is no fracture or contusion pattern. JOINTS: There are mild degenerative changes seen at the acromioclavicular joint. The glenohumeral nnamdi int is normal. No joint effusion. TENDONS: Supraspinatus: There is no evidence of a full-thickness tear. Infraspinatus: Unremarkable. There is hypointense area on the T1 and T2 weighted images within the in fraspinatus tendon consistent with calcific tendinitis. Subscapularis: There is tendinosis of the subscapularis tendon. Teres Minor: Unremarkable. Biceps and [place]: Unremarkable. MUSCLES: Unremarkable. GLENOID LABRUM: There is heterogeneity of the posterior superior labrum which may represent degenerat ion. Tear cannot be excluded. SOFT TISSUES: Unremarkable. LIGAMENTS: Unremarkable. OTHER: Subacromial and subdeltoid bursae are unremarkable. IMPRESSION: 1. Subscapularis tendinosis. 2. Infraspinatus calcific tendinitis. 3. Heterogeneity of the posterior superior labrum which may represent degeneration and/or tear. 4. No evidence of a rotator cuff tear. 5. Degenerative changes seen in the acromioclavicular joint. DATA REPOSITORY:
--- NOTE | 2024-11-13 | DI.MRI_ITS ---
Exam(s) MR UPPER JOINT RT WO EXAM: MR UPPER JOINT RT WO CLINICAL HISTORY: Shoulder girdle weakness, M99.07;segmental and somatic dysfunction of upper. TECHNIQUE: Multiplanar multisequence MRI was performed. COMPARISON: CR XR SHOULDER RT COMPLETE 2+V from 08/29/2023 FINDINGS: BONES: There is no fracture or contusion pattern. JOINTS: There are moderate degenerative changes seen at the acromioclavicular joint. The glenohumera l joint is normal. No joint effusion. TENDONS: Supraspinatus: There is tendinosis of the supraspinatus tendon. There is a focus of hyperintense sig nal seen in the supraspinatus tendon at its insertion site posteriorly suspicious for small partial t ear. Infraspinatus: Unremarkable. Subscapularis: Mild tendinosis of the subscapularis tendon. No evidence of a tear. Teres Minor: Unremarkable. Biceps and [place]: Unremarkable. MUSCLES: Unremarkable. GLENOID LABRUM: Unremarkable on this noncontrast examination. SOFT TISSUES: Unremarkable. LIGAMENTS: Unremarkable. OTHER: Subacromial and subdeltoid bursae are unremarkable. IMPRESSION: 1. Moderate degenerative changes at the acromioclavicular joint. 2. Tendinosis of the supraspinatus and subscapularis tendons. 3. Question of a small intrasubstance tear of the supraspinatus tendon at its insertion site posterio rly. DATA REPOSITORY:
== END 2024-11-13 01:06 ==
LOC: DI 00:46
PROVIDERS: PCP Family Medicine; Visit Provider Family Medicine
DX: M75.32 Calcific tendinitis of left shoulder (principal)
CPT/HCPCS: 73221

== ENCOUNTER 2024-12-16 14:41 | Outpatient (CLI) | payer OTHER, SELFPAY | END 2024-12-16 14:42 | disposition home or self-care (01) | LOC: DIORS 14:41 | PROVIDERS: PCP Family Medicine; Referring Provider Family Medicine; Visit Provider Student in an Organized Health Care Education/Training Program | DX: M25.511 Pain in right shoulder (principal); M25.512 Pain in left shoulder; I10 Essential (primary) hypertension; E11.9 Type 2 diabetes mellitus without complications | CPT/HCPCS: 20610; J1010 ==

== ENCOUNTER 2025-02-05 11:56 | Outpatient (REF) | payer OTHER, SELFPAY ==
[2025-02-01 21:51] LABS: ESR 5 mm/hr (0-20)
[2025-02-01 21:55] LABS: Creatine Kinase 147 U/L (39-308)
[2025-02-05 22:56] LABS: Result Summary NEGATIVE; Specimen WB Whole Blood
== END 2025-02-05 11:57 | disposition home or self-care (01) ==
LOC: NCHCN 11:56
PROVIDERS: PCP Family Medicine; Visit Provider Family Medicine
DX: M79.18 Myalgia, other site (principal); Z14.8 Genetic carrier of other disease
CPT/HCPCS: 81256; 82550; 85652

== ENCOUNTER → 2025-03-02 12:54 | Outpatient (BNVA) | payer OTHER, SELFPAY | PROVIDERS: PCP Family Medicine; Referring Provider Family Medicine; Visit Provider Student in an Organized Health Care Education/Training Program | DX: S46.211A Strain of muscle, fascia and tendon of other parts of biceps, right arm, initial encounter (principal); S46.212A Strain of muscle, fascia and tendon of other parts of biceps, left arm, initial encounter; M75.111 Incomplete rotator cuff tear or rupture of right shoulder, not specified as traumatic; M75.112 Incomplete rotator cuff tear or rupture of left shoulder, not specified as traumatic; X58.XXXA Exposure to other specified factors, initial encounter | CPT/HCPCS: 99214 ==

== ENCOUNTER 2025-05-04 18:24 | Outpatient (REF) | payer OTHER, SELFPAY ==
[2025-05-04 17:50] LABS: COMMENT (LAB VIEW ONLY) 70.22 mg/dL; Microalb ug/mg Crea 22.8 ug/mg Cr
== END 2025-05-04 18:25 | disposition home or self-care (01) ==
LOC: NCHCN 18:24
PROVIDERS: PCP Family Medicine; Visit Provider Family Medicine
DX: E11.9 Type 2 diabetes mellitus without complications (principal)
CPT/HCPCS: 82043; 82570

== ENCOUNTER 2025-05-07 10:45 | Day surgery (SDC) | payer OTHER, SELFPAY ==
[2025-05-07] VITALS (29 sets, daily range): BP systolic 101–233; BP diastolic 42–78; PULSE 58–86; RESP 12–22; TEMP 36–36.5; O2SAT 94–100; BMI 29.6
--- NOTE | 2025-05-07 07:13 | W.PM.DSUDISC ---
Date of service: 05/07/25 Discharge Plan Disposition Patient Disposition: Home Condition: Stable Discharge Details Attending Provider: Petr Caraballo Primary Care Provider: Patrick Parks Home Meds and New Rx's Prescriptions: New naproxen 250 mg tablet 250 - 500 mg PO BID PRN (Reason: moderate pain and swelling) Qty: 40 0RF hydrocodone-acetaminophen 5-325 mg tablet 1 - 2 tab PO .q4-6h MDD 30 mg PRN (Reason: severe pain) Qty: 18 0RF Continued metoprolol succinate 25 mg capsule,sprinkle,ER 24hr 75 mg PO DAILY Rybelsus 14 mg tablet 14 mg PO DAILY pravastatin 10 mg tablet 10 mg PO QHS losartan 100 MG tablet 100 mg PO DAILY cholecalciferol (vitamin D3) [Vitamin D3] 400 UNIT capsule 2,000 units PO DAILY Jardiance 25 mg Tablet 25 mg PO DAILY famotidine [Pepcid] 40 mg Tablet 40 mg PO DAILY Discharge Instructions Additional Instructions: Surgery: Right shoulder arthroscopy with rotator cuff repair (subscapularis), biceps tenodesis, extensive debridement, and subacromial decompression 05/07/25 Activity: For 6 weeks, you should keep your arm at your side in a neutral position at all times except for physical therapy. Do not try to lift or raise your arm using your own muscles. You should use the sling whenever you are out of the house. At home it is best to remove the sling and rest the arm on a pillow at your side or support the operative side with your other hand. You may allow the arm to dangle at your side. A physical therapy prescription will be sent electronically to begin in about 3 weeks. Standard protocol. Prescriptions: Naproxen 250 mg take 1-2 every 12 hours with a meal as needed for moderate pain Hydrodone-acetaminophen 5-325 mg take 1-2 every 4-6 hours as needed for severe pain Avoid taking additional Tylenol (acetaminophen) while taking combination hydrocodone-acetaminophen These pain medications may be taken all at once or in different combinations as needed. Also, recommend Colace (docusate) as a stool softener as surgery and pain medicine cause constipation. You may try [id number] diphenhydramine (Benadryl) 25-50 mg nightly as a sleep aid Dressings: Remove shoulder bandage after 3 days. Leave the sticky Steri-Strips in place until they fall off or remove them after you shower. Cover the incisions with Band-Aids or leave them open to air. You may shower after 5 days. Follow-up: 10-[address] Caraballo You may take off the leg compression stockings this evening at home. You may also leave them on a few days longer if you have a history of leg swelling or edema. Let us know right away if you develop any redness, drainage, fevers, chest pain, or trouble breathing. Do not drink alcohol or drive for at least 24 hours after anesthesia. Please call the office during business hours with any questions or concerns. Discharge Orders Discharge Orders: Discharge Order (Routine); Ordered 05/07/25 Ordered By: Rachel Duron DS: Diagnosis Discharge Diagnosis (1) Partial tear of right rotator cuff: Status: Acute (2) Traumatic partial tear of right biceps tendon: Status: Acute (3) Calcific tendinitis of right shoulder: Status: Acute
--- NOTE | 2025-05-07 07:44 | W.PM.OP ---
Operative Note Operative Note PRE-OP DIAGNOSIS: Right: 1. Rotator cuff tear 2. SLAP tear 3. Bursitis POST-OP DIAGNOSIS: same PROCEDURE: Right: 1. Rotator cuff repair, CPT# 03391. This involved repair of the subscapularis using anchor and sutures to reattach the rotator cuff back to the footprint of the lesser tuberosity. 2. Arthroscopic biceps tenodesis, CPT# 30613. This involved arthroscopically suturing and reattaching the long head of the biceps tendon to the proximal humerus at the superior margin of the bicipital groove with a screw at the correct tension. 3. Extensive debridement, CPT# 79393. This involved using arthroscopic hand instruments, power instruments, and radiofrequency instruments to release the long head of the biceps tendon and debride areas of labral tearing, SLAP tearing, rotator interval synovitis, mild glenoid chondromalacia, and partial articular supraspinatus infraspinatus articular rotator cuff tear and work within the glenohumeral joint anteriorly, superiorly and posteriorly. 4. Subacromial decompression with partial acromioplasty, CPT# 68070. This involved using arthroscopic power instruments and a radiofrequency wand to complete a bursectomy and smooth the undersurface of the acromion. The sales support assistant was medically required in order to help assist in techniques above, which require positioning the arm, holding the arthroscope, and manipulating multiple instruments and sutures at the same time. This cannot be done without the help of an experienced sales support assistant. SURGEON: Petr Caraballo MICROFICHE CAMERA OPERATOR: Rachel Duron ANESTHESIA TYPE: Local By Surgeon, General LMA/ETT and Primary Nerve Block Refer to Anesthesia Record ESTIMATED BLOOD LOSS: 10 PATHOLOGY: none sent COMPLICATIONS: None Patient was transported to: PACU Patient's condition: stable Implants: Arthrex: 4.75mm SwiveLocks x 1 Indications: The patient was diagnosed with the above conditions and appropriately indicated for surgical intervention. Please see complete medical record for details. Findings: Exam under anesthesia: Full range of motion, no instability Glenohumeral joint: Moderately significant anterior and rotator interval to superior synovitis. Obvious unstable biceps anchor SLAP tear with high-grade partial intra-articular biceps tendon tearing. More mild degenerative to moderate anterior to posterior superior labral tearing. Obvious upper portion subscapularis tearing. Moderate tendinosis/tendinopathy with articular sided tear right supraspinatus infraspinatus near the footprint without a significant footprint involvement correlating with the MRI findings. Mild humeral chondromalacia, moderate glenoid chondromalacia. Subacromial space: Moderate bursitis. Possible small calcific deposition. Mild gently sloping acromial impingement. Largely intact bursal rotator cuff. Procedure Description: In the operating room, general anesthesia was induced. Bilateral shoulders were examined. The patient was positioned in the beachchair position. All bony prominences were well-padded. Preoperative antibiotics were administered. The shoulder was prepped and draped in the usual sterile fashion. The correct patient, procedure, and side of the procedure were all verified prior to incision. Starting through the posterior portal a standard complete diagnostic arthroscopy was performed of the glenohumeral joint including inspection of the long head of the biceps, anterior and superior labrum, subscapularis tendon, supraspinatus and infraspinatus tendons, and axillary recess. The glenoid and humeral head cartilage as well as the posterior labrum were inspected from an anterior viewing portal. Significant findings and interventions noted above. An all-arthroscopic suprapectoral biceps tenodesis was performed through an anterior portal using a Loop N Tack method with a SutureTape FiberLink cinched around and through the tendon. The biceps was tenotomized from the labrum and withdrawn to the appropriate aspect superior bicipital groove for later repair the subscapularis. The 90 degree lasso was used through the anterior portal single portal technique to shuttle a FiberTape about the subscapularis tendon tear. The undersized followed by the regular punch was then used to localize repair anchor placement between the subscapularis and biceps tenodesis sites followed by loading both the biceps tenodesis and subscapularis repair sutures on the suture anchor eyelet, which was deployed with excellent reduction and fixation strength on the subscapularis as well as the biceps tenodesis nicely laying the tendons adjacent to the repair site. The extra knotless repair suture was then shuttled around the biceps tenodesis and back through the anchor eyelet mechanism and additional excellent security to the tenodesis. The arm had good contour and biceps repair was stable to testing. The subscapularis repair was stable through 30 degrees external rotation. Starting through the posterior portal, the arthroscope was directed into the subacromial space. A lateral 50 yard line lateral portal was created. A combination of power instruments and a radiofrequency ablator were used to debride bursitis anteriorly, posteriorly, and laterally as well as expose and smooth bone spurring on the undersurface of the acromion. The coracoacromial ligament was partially released. The bursectomy was completed viewing laterally and working from posteriorly and the rotator cuff was thoroughly inspected with findings noted above. There might have been some small calcium debrided from the lateral supraspinatus, but nothing significant was found and there was no significant structural tearing of the bursal side of the tendon. The shoulder was drained of arthroscopic fluid. All portal sites were copiously irrigated. These incisions were closed using 3-0 Monocryl in a buried fashion and then covered with Mastisol, Steri-Strips, Xeroform, dry gauze, and ABDs. The dressings were covered and secured with Medipore tape. The operative extremity was placed into a sling for immobilization. The patient awoke from anesthesia without complication and was transferred to the recovery room in a stable condition. Date of Procedure: 05/07/25
--- NOTE | 2025-05-07 11:02 | W.ANESPRE ---
General Info Date of Service Date Performed: 05/07/25 Height: 5 ft 9 in Weight: 91 kg Body Mass Index (BMI): 29.6 Surgical Procedure: Operation Date: 05/07/25 12:25 Proposed Procedure Side Surgeon p Shoulder Possible Rotator Cuff Arthroscopic w/Extensive Debridement, Biceps Tenodesis, Subacromial Decompression Right Petr Caraballo MD Meds Allergies and Home Medications Allergies Allergy/AdvReac Type Severity Reaction Status Date / Time atorvastatin AdvReac Intermediate Other (See Verified 05/07/25 11:04 Comment) oxycodone HCl (From Percocet) AdvReac Nausea Verified 05/07/25 11:04 Home Medication ?Medication ?Instructions ?Recorded cholecalciferol (vitamin D3) 10 2,000 units PO DAILY 03/19/14 mcg (400 unit) capsule (Vitamin D3) losartan 100 mg tablet 100 mg PO DAILY 03/19/14 empagliflozin 25 mg tablet 25 mg PO DAILY 10/14/21 (Jardiance) famotidine 40 mg tablet (Pepcid) 40 mg PO DAILY 08/01/22 metoprolol succinate 25 mg capsule 75 mg PO DAILY 04/05/23 sprinkle, ext. release 24 hr pravastatin 10 mg tablet 10 mg PO QHS 11/26/24 semaglutide 14 mg tablet (Rybelsus) 14 mg PO DAILY dose change from 12/16/24 7mg-14mg Current Visit Medications: Current Medications Generic Name Dose Route Start Last Admin Trade Name Freq PRN Reason Stop Dose Admin Ringer's Solution 1,000 mls @ 30 mls/hr 05/07/25 06:00 IV 05/07/25 23:59 INFUSION KETTY Cefazolin Sodium/Dextrose 2 gm in 50 mls @ 100 mls/hr 05/07/25 06:00 Ancef Duplex IVPB 05/07/25 23:59 PREOP KETTY Tranexamic Acid/Sodium Chloride 1,000 mg in 100 mls @ 600 mls/hr 05/07/25 06:00 IVPB 05/07/25 23:59 PREOP KETTY IV Miscellaneous Supplies 1 each 05/07/25 06:00 Iv Access IV 05/07/25 23:59 DIRECTED KETTY Sodium Chloride 0 ml 05/07/25 06:00 Normal Saline Flush 10 Ml Syr IV 05/07/25 23:59 PRN PRN Sodium Chloride 0 ml 05/07/25 06:00 Normal Saline 10 Ml Vial IJ 05/07/25 23:59 DIRECTED PRN Sterile Water 0 ml 05/07/25 06:00 Water,Injection,Sterile 10 Ml Vial IJ 05/07/25 23:59 DIRECTED PRN PFSH Active Problems Active Problems: Problem Status Onset Code Traumatic partial tear of left biceps tendon Acute S46.212A Traumatic partial tear of right biceps tendon Acute S46.211A Partial tear of left rotator cuff Acute M75.112 Partial tear of right rotator cuff Acute M75.111 Musculoskeletal chest pain Acute R07.89 Exertional dyspnea Acute R06.00 Chest pain Acute R07.9 Thyroid lesion Acute E07.89 Breath shortness Acute R06.02 Hyperlipidemia Chronic Medical History Medical History GERD (gastroesophageal reflux disease) Obstructive sleep apnea Unspecified hearing loss, left ear Fatty liver disease, nonalcoholic Surgical History Surgical History H/O vasectomy H/O: hemorrhoidectomy Trigger Finger release (03/25/14) Right Thumb Release for de Quervain's tenosynovitis of hand (03/25/14) Right Colonoscopy - MAC (06/12/17) Tobacco Smoking/Tobacco Use Status: Never Alcohol Alcohol Intake: never Substance Use Substance use: Never Substance use type: does not use Vital Signs and Lab Results Vital Signs Most Recent Vital Signs in EMR: Temp Pulse Resp BP Pulse Ox 36.4 C L 61 16 162/77 H 97 05/07/25 11:37 05/07/25 11:37 05/07/25 11:37 05/07/25 11:37 05/07/25 11:37 Anesthesia Assessment and Plan Anesthesia History Personal History: No History of Anesthesia Complications Family History: No Family History of Anesthesia Complications Exercise Tolerance Exercise Tolerance: Metabolic Equivalents>4 Cardiac & Pulmonary Exam Cardiac Exam: Normal S1/S2 Heart Sounds Pulmonary Exam: Clear Bilateral Breath Sounds Implantable Cardiac Device Does patient have a Pacemaker or an ICD?: No Airway Exam Known Difficult Airway: No Mallampati Class: 4 Mouth Opening: Narrow (< 3cm) Thyromental Distance: Greater than 3 cm Neck Range of Motion: Limited ROM Neck Circumference: Normal Teeth Condition: Normal Dentition ASA Classification ASA Score: ASA 2 Emergency Case?: No NPO Status NPO Status: NPO Clears >2 hours, Solids >8 hours Anesthesia Plan Resuscitation Status: Full Code Anesthesia Technique: General Anesthesia Airway Planned: Endotracheal Tube Pain Management: Surgeon and patient request nerve block Monitors Used: Standard Monitors Preoperative Comments:: 64 yo for shoulder Sig PMHx: HTN (losartan, metoprolol), CEJA (r/t 2nd covid shot), JOSLYN (appliance), GERD (famotidine, occ tums), fatty liver, thyroid lesion, DM (Rybelsus, Jardiance. last A1c ~7). Never smoker/EtOH. ECG: sinus. ECHO: LVEF 59%, trace MR/TR Stress: 13.5 METS, no ECG changes. EF 68%, no evidence of ischemia. PFTs: normal. Previous Anes: - colo, prop, natural airway, no issues. Does have numbness in his hand/radial distribution. Discussed nerve injury associated with regional anesthesia (~1:5000), and that a nerve injury can also be related to surgery and surgical positioning. He understands that there is a risk of regional anesthesia and an existing area of numbness. He verbalizes that it can make it worse, or remain the same. He is still interested in undergoing regional anesthesia for his shoulder scope.
[2025-05-07] MEDS: Lactated Ringers 1,000 ML 30 ML IV (11:53)
[2025-05-07] MEDS: ceFAZolin 2 GM/50 ML BAG IVPB (13:31)
[2025-05-07] MEDS: TRANEXAMIC ACID/SOD. CHL. 1,000 MG/100 ML BAG 600 MG IVPB (13:35)
--- NOTE | 2025-05-07 13:35 | W.ANESNERVE ---
Nerve Block Single Injection Procedure Date and Time Date Performed: 05/07/25 Procedure Start: 13:03 Location Where Procedure Performed Procedure Location: Day Surgery Unit Reason Performed: Postoperative Analgesia Requesting Provider: Petr Caraballo Timeout Performed Timeout Performed: Yes Monitoring Used ECG, Blood Pressure and SpO2 Sterility Sterility: Hand Hygiene, Surgical Cap, Surgical Mask, Sterile Gloves and Chlorhexidine Sedation Given During Procedure Sedation Given (Indicate Dose Given): Versed IV Dose:: 2 mg Patient Mental Status Patient Mental Status: Sedate with meaningful communication Nerve Block 1st Nerve Block: Laterality: Right Block Type: Interscalene Ultrasound Image Saved?: Yes Needle / Catheter Used: 100mm SonoPlex II Local Anesthetic Bolus (Indicate Dose Given): Lidocaine used for local infiltration of skin, Bupivacaine 0.5% Dose:: 10 mL and Exparel Dose:: 10 mL Additives (Indicate Dose Given): None Ultrasound: Sterile probe cover and gel used Nerve Stimulator: Supplement to Ultrasound use and No twitch or parasthesia noted < 0.5 mA (< 0.8 mA) Paresthesia: None Procedure Tolerated: No Complications Procedure Outcome: Successful Performed By: Max Silva
[2025-05-07] MEDS: Bupivacaine 0.25% Pres-Free W/EPI 30 ML VIAL (14:12)
[2025-05-07] MEDS: EPINEPHrine 10 MG/10 ML ML (14:45)
--- NOTE | 2025-05-07 15:53 | W.ANESPOSTOP ---
Postoperative Evaluation Date, Time and Location Date Performed: 05/07/25 Time Performed: 15:53 Patient Location: Day Surgery Unit Vital Signs Most Recent Imported Vital Signs: Most Recent Vital Signs Temp Pulse Resp BP Pulse Ox 36.5 C 72 17 143/75 H 95 05/07/25 15:40 05/07/25 15:41 05/07/25 15:41 05/07/25 15:40 05/07/25 15:41 Pain Score Most Recent Pain Score: Most Recent Pain Score Pain Level 5 05/07/25 15:40 Assessment Mental Status: Awake (Alert & Oriented to Patient Baseline) Airway and Respiratory Function: Patent airway with normal (patient baseline) respiratory exam Cardiovascular Function: Hemodynamically Stable Hydration Status: Adequately Hydrated Nausea & Vomiting: No Nausea or Vomiting Pain: Pain is Moderate or Severe Postoperative Pain Management: Pain being addressed with medication Peripheral Nerve Block: Regional nerve block not resolved at time of post operative discharge
[2025-05-07] MEDS: HYDROmorphone 2 MG TAB PO (16:24)
== END 2025-05-07 17:14 | disposition home or self-care (01) ==
LOC: SUR 10:45
PROVIDERS: PCP Family Medicine; Visit Provider Student in an Organized Health Care Education/Training Program
PROC: (CPT 29827; principal; 2025-05-07 12:15)
DX: M75.111 Incomplete rotator cuff tear or rupture of right shoulder, not specified as traumatic (principal); S46.211A Strain of muscle, fascia and tendon of other parts of biceps, right arm, initial encounter; M75.31 Calcific tendinitis of right shoulder; I10 Essential (primary) hypertension; G47.33 Obstructive sleep apnea (adult) (pediatric); K21.9 Gastro-esophageal reflux disease without esophagitis; E11.9 Type 2 diabetes mellitus without complications; X58.XXXA Exposure to other specified factors, initial encounter; G89.18 Other acute postprocedural pain
CPT/HCPCS: 29827; 29828; 29823; 29826; 64415; J0131; J0665; J0666; J0690; J1100; J1885; J2250; J2371; J2405; J2704; J3010; J3475

== ENCOUNTER 2025-05-19 10:53 | Emergency (ER) | payer MEDICARE, OTHER, SELFPAY ==
[2025-05-19 11:10] VITALS: BP 155/77; PULSE 78; RESP 15; TEMP 36.2; O2SAT 97
--- NOTE | 2025-05-19 12:10 | W.ED.GENAD ---
Discharge Plan Disposition Patient Disposition: Home Condition: Good Discharge Details Clinical Impression: Rash Primary Care Provider: Patrick Parks ED Provider: Pop Paris Home Meds and New Rx's Prescriptions: New prednisone 50 mg tablet 50 mg PO DAILY Qty: 5 0RF hydroxyzine HCl 25 mg tablet 25 mg PO QID PRNQty: 30 0RF No Action metoprolol succinate 25 mg capsule,sprinkle,ER 24hr 75 mg PO DAILY Rybelsus 14 mg tablet 14 mg PO DAILY cephalexin 500 mg capsule 500 mg PO QID Qty: 28 0RF fluconazole 150 mg tablet 150 mg PO Q3D Qty: 10 1RF triamcinolone acetonide 0.1 % cream 1 applic topical BID Qty: 30 0RF pravastatin 10 mg tablet 10 mg PO QHS losartan 100 MG tablet 100 mg PO DAILY cholecalciferol (vitamin D3) [Vitamin D3] 400 UNIT capsule 2,000 units PO DAILY hydrocodone-acetaminophen 5-325 mg tablet 1 - 2 tab PO .q4-6h MDD 30 mg PRN (Reason: severe pain) Qty: 18 0RF ondansetron 4 mg tablet,disintegrating 4 mg PO Q6H PRN (Reason: nausea or vomiting) Qty: 5 0RF Jardiance 25 mg Tablet 25 mg PO DAILY famotidine [Pepcid] 40 mg Tablet 40 mg PO DAILY Discharge Instructions Instructions: Skin Rash ED Additional Instructions: At this time your rash appears to represent a reaction to potential systemic medications like the antibiotic or the antifungal. Please stop taking the fluconazole and the Keflex as the infection under your right armpit has resolved. Please take the prednisone as prescribed. Please be cautious as this may increase your blood sugar levels while on the medication. Please take the Atarax as needed to help with itching. Please monitor your rash closely. If you do notice changes, or lack of improvement after 48 hours, or worsening symptoms, please return immediately for reassessment. Please do not hesitate to reach out to me personally if you notice any concerning changes or for just general reassessment. You can call me at my personal cell phone at [phone]. If you notice any worsening of your symptoms, or any new symptoms such as vomiting, diarrhea, fever, chills, shortness of breath, chest pain, numbness, weakness, or fainting , please return immediately to the emergency department for reevaluation. Please follow up with your primary care provider as soon as possible for reassessment and reevaluation. As always, it was a pleasure participating in your medical care today. Referrals: Patrick Parks MD [Primary Care Provider, Medicine] Discharge Data Discharge Date/Time-TO BE ENTERED AT DEPARTURE: 05/19/25 12:21 HPI General Date/Time Provider Initiated Documentation: 05/19/25 11:11. HPI Narrative: 64-year-old male with a past medical history of recent right sided shoulder surgery, who presents today for evaluation of rash. Surgical management was performed 2 weeks ago, a few days after surgery the patient developed redness and itching in his right axillary region. He was recommended to apply diluted vinegar to that area out of concern that there may be a potential fungal etiology. This did not change his symptoms significantly. He then went to urgent care about 4 days ago, symptoms were worsening, with the redness and notable itchiness. Patient was started on Keflex, as well as oral fluconazole and given a topical steroid. He took these for the next 3 days, and the redness and itchiness notably improved in that area, however it then transition to a new rash over his chest abdomen back neck arms groin and some on his feet as well. These areas were extremely itchy. He denies any fever or chills. He denies any oral lesions. He denies any nausea or vomiting. He denies any diarrhea. He denies any chest pain or shortness of breath. He denies any history of significant allergic reaction to previous medications, and denies any history of rash otherwise. No other complaints at this time. No other modifying factors. Related Data Home Medications ?Medication ?Instructions ?Recorded ?Confirmed cholecalciferol (vitamin D3) 10 2,000 units PO DAILY 03/19/14 05/19/25 mcg (400 unit) capsule (Vitamin D3) losartan 100 mg tablet 100 mg PO DAILY 03/19/14 05/19/25 empagliflozin 25 mg tablet 25 mg PO DAILY 10/14/21 05/19/25 (Jardiance) famotidine 40 mg tablet (Pepcid) 40 mg PO DAILY 08/01/22 05/19/25 metoprolol succinate 25 mg capsule 75 mg PO DAILY 04/05/23 05/19/25 sprinkle, ext. release 24 hr pravastatin 10 mg tablet 10 mg PO QHS 11/26/24 05/19/25 semaglutide 14 mg tablet (Rybelsus) 14 mg PO DAILY dose change from 12/16/24 05/19/25 7mg-14mg hydrocodone 5 mg-acetaminophen 325 1 - 2 tab PO .q4-6h PRN severe 05/07/25 05/19/25 mg tablet pain #18 tabs ondansetron 4 mg disintegrating 4 mg PO Q6H PRN nausea or vomiting 05/07/25 05/19/25 tablet #5 tabs cephalexin 500 mg capsule 500 mg PO QID #28 caps 05/15/25 05/19/25 Held on 05/19/25. Instructions: Pt stopped taking yesterday 05/19/25 fluconazole 150 mg tablet 150 mg PO Q3D #10 tabs 05/15/25 05/19/25 triamcinolone acetonide 0.1 % 1 applic topical BID #30 grams 05/15/25 05/19/25 topical cream hydroxyzine HCl 25 mg tablet 25 mg PO QID PRN #30 tabs 05/19/25 05/19/25 prednisone 50 mg tablet 50 mg PO DAILY #5 tabs 05/19/25 05/19/25 Previous Rx's ?Medication ?Instructions ?Recorded hydrocodone 5 mg-acetaminophen 325 1 - 2 tab PO .q4-6h PRN severe 05/07/25 mg tablet pain #18 tabs ondansetron 4 mg disintegrating 4 mg PO Q6H PRN nausea or vomiting 05/07/25 tablet #5 tabs cephalexin 500 mg capsule 500 mg PO QID #28 caps 05/15/25 Held on 05/19/25. Instructions: Pt stopped taking yesterday 05/19/25 fluconazole 150 mg tablet 150 mg PO Q3D #10 tabs 05/15/25 triamcinolone acetonide 0.1 % 1 applic topical BID #30 grams 05/15/25 topical cream hydroxyzine HCl 25 mg tablet 25 mg PO QID PRN #30 tabs 05/19/25 prednisone 50 mg tablet 50 mg PO DAILY #5 tabs 05/19/25 Allergies Allergy/AdvReac Type Severity Reaction Status Date / Time cephalexin Allergy Intermediate Skin Rash Verified 05/19/25 15:29 atorvastatin AdvReac Intermediate Other (See Verified 05/19/25 15:04 Comment) oxycodone HCl (From Percocet) AdvReac Nausea Verified 05/19/25 15:04 General Stated Complaint: RashLesion RICHARD: 4 Exam Narrative Exam Narrative: 1.Const: Well-nourished, Well-developed, appearing stated age 2.Eyes: PERRL, no conjunctival injection, and symmetrical lids. 3.ENT: Atraumatic external nose and ears. Moist MM. Neck: Symmetric, trachea midline, No thyromegaly. 4.CVS: +S1/S2, Peripheral pulses 2+ and equal in all extremities. Brisk capillary refill in all extremities. 5.RESP: Unlabored respiratory effort. Clear to auscultation bilaterally. No wheezes rales or rhonchi 6.GI: Soft, Nontender/Nondistended, No hepatosplenomegaly. No guarding or rebound. 7.MSK: Normocephalic/Atraumatic, Extremities w/o deformity or ttp No cyanosis or clubbing, Normal movement of all extremities 8.Skin: Warm, Dry. Negative Nikolsky sign. No large vesicles or bulla. No palpable purpura. No oral lesions. No mucosal lesions. No evidence of severe cellulitis. No evidence of vaccine preventable rash. Patient demonstrates a diffuse blanching macular papular rash, with a minimal raised component. Multiple areas of confluence. Of note the right axillary region no longer shows any of the redness. In fact the redness is gone in the area of distribution where the topical steroid cream had been applied. 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 Sensation grossly intact, no focal neurologic deficits. 10.Psych: (AAO) x3. Appropriate mood and affect Course Vital Signs Vital signs: Vital Signs Temperature 36.2 C L 05/19/25 11:10 Pulse 78 05/19/25 11:10 Respiratory Rate 15 05/19/25 11:10 Blood Pressure 155/77 H 05/19/25 11:10 Pulse Oximetry 97 05/19/25 11:10 Temperature 36.2 C L 05/19/25 11:10 Temperature Source Tympanic 05/19/25 11:10 Pulse 78 05/19/25 11:10 Respiratory Rate 15 05/19/25 11:10 Blood Pressure 155/77 H 05/19/25 11:10 Blood Pressure Position Sitting 05/19/25 11:10 Pulse Oximetry 97 05/19/25 11:10 Oxygen Delivery Method Room Air 05/19/25 11:10 Oxygen Flow Rate 0 05/19/25 11:10 Pain Level 5 05/19/25 11:10 Medical Decision Making 64-year-old male with a past medical history of recent right sided shoulder surgery, who presents today for evaluation of rash. Surgical management was performed 2 weeks ago, a few days after surgery the patient developed redness and itching in his right axillary region. He was recommended to apply diluted vinegar to that area out of concern that there may be a potential fungal etiology. This did not change his symptoms significantly. He then went to urgent care about 4 days ago, symptoms were worsening, with the redness and notable itchiness. Patient was started on Keflex, as well as oral fluconazole and given a topical steroid. He took these for the next 3 days, and the redness and itchiness notably improved in that area, however it then transition to a new rash over his chest abdomen back neck arms groin and some on his feet as well. These areas were extremely itchy. He denies any fever or chills. He denies any oral lesions. He denies any nausea or vomiting. He denies any diarrhea. He denies any chest pain or shortness of breath. He denies any history of significant allergic reaction to previous medications, and denies any history of rash otherwise. No other complaints at this time. No other modifying factors. Patient demonstrates a diffuse blanching macular papular rash, with a minimal raised component. Multiple areas of confluence. Of note the right axillary region no longer shows any of the redness. In fact the redness is gone in the area of distribution where the topical steroid cream had been applied. Symptomatology appears consistent with a diffuse exanthem likely secondary to iatrogenic cause, potentially Keflex. Fluconazole potential but less likely. No red flags to suggest anaphylaxis. No nausea or vomiting chest pain or tachycardia hypotension or signs of shock. No oral lesions. No current clinical evidence of staph scalded skin syndrome, erythema multiforme, erythema migrans, toxic epidermal necrolysis, Hardy-Riccardo syndrome, Kawasaki-like rash, meningococcemia, pemphigus vulgaris, or necrotizing fasciitis. Will recommend holding the Keflex and the fluconazole at this time. Will give Atarax for itching, as well as a 5-day course of prednisone. Recommend prompt return if symptoms worsen, as well as close follow-up. I have extensively reviewed the treatment plan and discharge instructions with the patient and their family. I have addressed all patient concerns at this time. The patient and family was made aware of what symptoms to monitor for that would warrant a return to the emergency department. Discussed the plan with the patient and family, they demonstrate verbal understanding and agreement with our assessment and plan at this time. The documentation in this chart was dictated using [employer] dictation software. Please excuse any dictation errors. PFSH All Active Problems (Updated 05/19/25 @ 12:11 by Pop Paris DO) Rash (Acute) Calcific tendinitis of right shoulder (Acute) Traumatic partial tear of left biceps tendon (Acute) Traumatic partial tear of right biceps tendon (Acute) Partial tear of left rotator cuff (Acute) Partial tear of right rotator cuff (Acute) s/p Right shoulder arthroscopy with rotator cuff repair (subscapularis), biceps tenodesis, extensive debridement, and subacromial decompression 05/07/25 Musculoskeletal chest pain (Acute) Exertional dyspnea (Acute) Chest pain (Acute) Thyroid lesion (Acute) Breath shortness (Acute) Hyperlipidemia (Chronic) Medical History (Updated 05/19/25 @ 12:11 by Pop Paris DO) GERD (gastroesophageal reflux disease) Obstructive sleep apnea Unspecified hearing loss, left ear Fatty liver disease, nonalcoholic Surgical History (Updated 05/07/25 @ 15:25 by CARYN Christine) H/O vasectomy H/O: hemorrhoidectomy Trigger Finger release (03/25/14) Right Thumb Release for de Quervain's tenosynovitis of hand (03/25/14) Right Colonoscopy - MAC (06/12/17) Family History Father Brain cancer Mother Diabetes Acute Crohn's disease Social History Smoking/Tobacco Use Status: Never Smoking risk assessment performed?: Yes Alcohol Intake: never Drug use: Never Substance use type: does not use Household members: family Housing: house Current gender identity: male What is your relationship status?: Panel score (0-1 are the most socially isolated patients): 1 Velma/Mormon: Christianity Special velma needs: No Seatbelt use: always Do you feel safe at home: Yes Do you feel safe in your relationship?: Yes
[2025-05-19] MEDS: predniSONE 20 MG TAB 60 MG PO (12:11)
== END 2025-05-19 12:21 | disposition home or self-care (01) ==
LOC: ER 12:47
PROVIDERS: Emergency Provider Student in an Organized Health Care Education/Training Program; PCP Family Medicine
DX: R21 Rash and other nonspecific skin eruption (principal)
CPT/HCPCS: 99283 ×2; J7512

== ENCOUNTER → 2025-07-20 14:40 | Outpatient (BNVA) | payer MEDICARE, OTHER, SELFPAY | PROVIDERS: PCP Family Medicine; Referring Provider Family Medicine; Visit Provider Student in an Organized Health Care Education/Training Program | DX: Z47.89 Encounter for other orthopedic aftercare (principal); M75.111 Incomplete rotator cuff tear or rupture of right shoulder, not specified as traumatic; S46.211D Strain of muscle, fascia and tendon of other parts of biceps, right arm, subsequent encounter; X58.XXXD Exposure to other specified factors, subsequent encounter | CPT/HCPCS: 99024 ==